=== PATIENT | male | born 1955 | race Caucasian/White ===

== ENCOUNTER → 2021-01-09 08:18 | Outpatient (BNVA) | payer OTHER, SELFPAY | PROVIDERS: PCP Physician Assistant Medical; Referring Provider Physician Assistant Medical; Visit Provider Anesthesiology Pain Medicine | DX: M54.16 Radiculopathy, lumbar region (principal); M47.816 Spondylosis without myelopathy or radiculopathy, lumbar region; M50.90 Cervical disc disorder, unspecified, unspecified cervical region; M54.9 Dorsalgia, unspecified; F17.210 Nicotine dependence, cigarettes, uncomplicated; Z79.891 Long term (current) use of opiate analgesic | CPT/HCPCS: 99205 ==

== ENCOUNTER → 2021-01-20 13:15 | Outpatient (BNVA) | payer OTHER, SELFPAY | PROVIDERS: PCP Physician Assistant Medical; Visit Provider Anesthesiology Pain Medicine | DX: M54.16 Radiculopathy, lumbar region (principal); M54.9 Dorsalgia, unspecified; Z79.891 Long term (current) use of opiate analgesic | CPT/HCPCS: 64483; 64484; J1100; J3490 ==

== ENCOUNTER → 2021-02-03 11:16 | Outpatient (BNVA) | payer OTHER, SELFPAY | PROVIDERS: PCP Physician Assistant Medical; Visit Provider Anesthesiology Pain Medicine | DX: M54.9 Dorsalgia, unspecified (principal); M50.90 Cervical disc disorder, unspecified, unspecified cervical region; M47.816 Spondylosis without myelopathy or radiculopathy, lumbar region; M54.16 Radiculopathy, lumbar region; Z79.891 Long term (current) use of opiate analgesic | CPT/HCPCS: 99213 ==

== ENCOUNTER 2022-02-28 07:27 | Day surgery (SDC) | payer MEDICARE, SELFPAY ==
[2022-02-26 09:56] VITALS: BMI 28.3
[2022-02-28 07:51] VITALS: BP 127/84; PULSE 76; RESP 18; TEMP 36.3; O2SAT 93
[2022-02-28] MEDS: sodium chloride 0.9% 1,000 ML 30 ML IV (08:01)
--- NOTE | 2022-02-28 08:46 | ANES.PREANE2 ---
Pre-Anesthetic Assessment Height/Weight: Height 1.85 m Weight 97.522 kg Temp Pulse Resp BP Pulse Ox 97.4 F L 76 18 127/84 93 02/28/22 07:51 02/28/22 07:51 02/28/22 07:51 02/28/22 07:51 02/28/22 07:51 Preop Diagnosis: diagnostic Operation Date: 02/28/22 09:15 Proposed Procedures p Colonoscopy 35892/z12.11(Not Applicable) - Faustino Delgado MD Familial anesthetic complications: None Was Beta Gabbi taken within 24 hours: N/A Last intake: Intake Last Liquid Date 02/27/22 Last Liquid Time 21:30 Last Solid Date 02/26/22 Last Solid Time 20:00 Social Tobacco and No alcohol Occasional drug use Exam alert, oriented x 3, clear to auscultation bilaterally and regular rate & rhythm Airway Submandibular: within normal limits Cervical ROM: within normal limits (Some pain noted with extension, normal ROM ) Mallampati: Class II Dentition: false Pulmonary Chronic Obstructive Pulmonary Disease CV/HEM None reported Denies CAD, HTN, arrythmia hx METS > 4 None reported Hepatic None reported GI None reported Metabolic None reported Musc/skel Lower Back Pain and Osteoarthritis/DJD Neuropsych None reported Anesthetic Plan ASA status: 3 (66 year old male, daily smoker with COPD per patient, and current occasional drug use ) Anesthesia: Anesthesia Evaluation and General Other: I discussed with the patient risks, goals, and benefits of MAC and general anesthesia. We discussed spectrum of MAC anesthesia including conversion to general as well as possibility of recall of intraoperative stimuli including discomfort/pain. Patient agrees to proceed with MAC. Risk of > 500 ml blood loss (7ml/kg in children): No Medications/Allergies Home Medications Medication Instructions Recorded Confirmed Last Taken Type hydrocodone 5 mg-acetaminophen 325 1 tab PO BID PRN 30 Days #60 tab 01/09/21 02/28/22 02/27/22 Rx mg tablet albuterol sulfate 90 mcg/actuation 2 puff INHALATION PRN 02/26/22 02/28/22 02/27/22 History aerosol inhaler Allergies Allergy/AdvReac Type Severity Reaction Status Date / Time No Known Allergies Allergy Verified 02/28/22 07:50 Current Medications Generic Name Dose Route Start Last Admin Trade Name Freq PRN Reason Stop Dose Admin Sodium Chloride 1,000 mls @ 30 mls/hr 02/28/22 08:00 02/28/22 08:01 Sodium Chloride 0.9% IV 03/01/22 07:59 30 mls/hr .Q24H KAITLIN Administration PFSH Anesthesia Family History Mother , Car accident No problems noted. Father , age 78 Heart attack Social History Smoking and tobacco status: current some day smoker Alcohol intake: never History of recent travel: No Data Anesthesia Cardiac Studies: No Data to Display
--- NOTE | 2022-02-28 09:00 | P.HP_ITS ---
Same Day Surgery H&P Indication for Procedure/HPI DATE OF PROCEDURE: February 28, 2022 CHIEF COMPLAINT/INDICATIONFOR SURGICAL PROCEDURE: Screening colonoscopy PREOP DIAGNOSIS: diagnostic PLANNED PROCEDURE: Operation Date: 02/28/22 09:15 Proposed Procedures p Colonoscopy 24944/z12.11(Not Applicable) - Faustino Delgado MD Medications/Allergies* Home Medications Medication Instructions Recorded Confirmed Type albuterol sulfate 90 mcg/actuation 2 puff INHALATION PRN 02/26/22 02/28/22 History aerosol inhaler Allergies/Adverse Reactions Allergy/AdvReac Type Severity Reaction Status Date / Time No Known Allergies Allergy Verified 02/28/22 07:50 Current Medications: Generic Name Dose Route Start Last Admin Trade Name Freq PRN Reason Stop Dose Admin Sodium Chloride 1,000 mls @ 30 mls/hr 02/28/22 08:00 02/28/22 08:01 Sodium Chloride 0.9% IV 03/01/22 07:59 30 mls/hr .Q24H KAITLIN Administration Pertinent History/Comorbid Conditions* Family History (Updated 01/09/21 @ 09:14 by Flower Last LPN) Father, age 78 Mother, Car accident Heart attack Father Social History Smoking and tobacco status: current some day smoker Alcohol intake: never History of recent travel: No Pertinent Exam Findings alert, oriented x 3 and regular rate & rhythm Recommendations Surgery/Procedure today Coding Level of Care Code Acute Helpdesk Administrator for Perfecto Shaw
[2022-02-28 10:00] VITALS: BP 110/73; PULSE 68; RESP 17; TEMP 36.5; O2SAT 94
--- NOTE | 2022-02-28 10:04 | ANE.PACU2 ---
Inpatient post-anesthesia follow up: Airway intact: Yes Vital signs: Temperature 97.4 F Pulse Rate 76 Respiratory Rate 18 Blood Pressure 127/84 Pulse Oximetry 93 Oxygen Delivery Me thod Room Air Oxygen Flow Rate Fraction of Inspir ed Oxygen Hydration adequate: Yes Nausea and vomiting: No Pain level: 1 Mental status: Baseline
[2022-02-28 10:07] VITALS: BP 110/73; PULSE 68; RESP 17; TEMP 36.5; O2SAT 94
[2022-02-28 10:10] VITALS: BP 108/64; PULSE 58; RESP 17; TEMP 36.6; O2SAT 98
== END 2022-02-28 10:40 | disposition home or self-care (01) ==
PROVIDERS: Visit Provider Surgery
PROC: 0DJD8ZZ Inspection of Lower Intestinal Tract, Via Natural or Artificial Opening Endoscopic (ICD-10-PCS; CPT 45378; principal; 2022-02-28 09:15)
DX: Z12.11 Encounter for screening for malignant neoplasm of colon (principal); D12.3 Benign neoplasm of transverse colon; K57.30 Diverticulosis of large intestine without perforation or abscess without bleeding; K64.8 Other hemorrhoids; D12.8 Benign neoplasm of rectum; F17.200 Nicotine dependence, unspecified, uncomplicated; J44.9 Chronic obstructive pulmonary disease, unspecified
CPT/HCPCS: 45385; 88305; J2704; J7030

== ENCOUNTER 2022-03-18 10:52 | Emergency (ER) | payer MEDICARE, SELFPAY ==
[2022-03-18 11:00] VITALS: BP 161/80; PULSE 90; RESP 18; TEMP 37.6; O2SAT 95; BMI 28.3
--- NOTE | 2022-03-18 11:34 | ED_ITS ---
HPI - Male Genitourinary General: Chief complaint: Urogenital-Male Stated complaint: abdominal & back pain/pain while urinating Time Seen by Provider: 03/18/22 11:26 Source: patient and family Mode of arrival: ambulatory Limitations: no limitations History of Present Illness: This patient presents to our emergency department because of urinary complaints. He states over the past approximately 5 days or so he has had urinary urgency, burning, right flank pain. He states that the back pain has been present most days. It is unchanged and is nonradiating. Its not ripping or tearing. He states that when he does urinate it seems to exacerbate his back pain. He denies back injury but does have a history of herniated disks. He does have some chronic sciatic nerve distribution pain its not changed. He has had no saddle anesthesia or Perianal numbness or loss or bladder or bowel control. He is unaware of any blood in his urine. No pain radiating to his testicle groin lower groin etc. No muscle weakness. He does not think he has had a history of kidney stones. He has not had any recent trauma to his back with lifting or falls etc. He denies fevers but has had chills. He has been drinking fluids throughout the week but over the past 24 hours his appetite is decreased. He has had no abdominal surgeries. Does have a past history of smoking and continues to smoke. He denies any history of coronary disease or lung disease that he is aware. No exposure to infectious disease etc. Duration: progressively worsening Location: right flank Radiation: abdomen Severity: moderate Quality: aching and burning Exacerbating factors: urination Associated symptoms: Reports fevers/chills and nausea; Deny dysuria, hematuria, urinary incontinence, urinary retention or vomiting Related Data: Sexually active: Yes Review of Systems Const: Reports: chills, body aches and change in appetite; Denies: fever(s) Eyes: Denies: change in vision or blurry vision ENMT: Denies: throat pain, odynophagia, dental pain or nasal congestion Card: Denies: chest pain, palpitations or irregular heart rhythm Resp: Denies: dyspnea, productive cough or non-productive cough GI: Reports: nausea; Denies: vomiting or hematochezia : Reports: flank pain and urinary urgency; Denies: difficulty urinating, dysuria, urinary dribbling, difficulty starting urination, change in urine stream, urinary incontinence or hematuria Musc: Reports: back pain; Denies: neck pain, extremity pain or extremity swelling Skin/Breast: Denies: rash Neuro: Denies: headache(s), numbness in extremities, weakness in extremities or difficulty walking Jero/Lymph: Denies: easy bruising or easy bleeding PFSH ED PFSH: Surgical History (Updated 02/28/22 @ 09:59 by Faustino Delgado MD) Status post colonoscopy (02/28/22) Family History Mother , Car accident No problems noted. Father , age 78 Heart attack Social History Smoking and tobacco status: current some day smoker Alcohol intake: never History of recent travel: No Physical Exam Narrative: EXAM NARRATIVE: He is alert and interactive. He appears to be slightly uncomfortable but is goal-directed in his speech. Const: COMMON NORMALS: average body habitus, patient oriented x3, healthy appearing and well nourished HENMT: COMMON NORMALS: normocephalic, Normal nasal mucous membranes and turbinates present and moist oral mucous membranes HEAD & SCALP: normocephalic NOSE: Normal nasal mucous membranes and turbinates present Eye: COMMON NORMALS: Equal, round and reactive pupils present and EOMs intact bilaterally PUPIL: Yes Equal, round and reactive pupils present Neck/C-Spine: COMMON NORMALS: full ROM, supple and no JVD GENERAL: Yes normal visual inspection and Yes trachea midline Chest: COMMONS NORMALS: normal inspection of the chest Resp: COMMON NORMALS: normal respiratory effort, No use of accessory muscles and clear to auscultation bilaterally AUSCULTATION: clear to auscultation b ilaterally Cardio: COMMON NORMALS: no JVD, regular rate, regular rhythm and Peripheral pulses 2+ throughout RATE: regular rate RHYTHM: regular rhythm PERIPHERAL PULSES: Peripheral pulses 2+ throughout GI: COMMON NORMALS: Normal to inspection, nondistended, normoactive bowel sounds present, Soft to palpation, non-tender, No hepatosplenomegaly present, no masses and no bruits PALPATION: Yes Soft to palpation and Yes No hepatosplenomegaly present : BLADDER/KIDNEY EXAM: Yes CVA tenderness (No skin changes, ecchymosis. Exacerbated with twisting to the right) Back/Pelvis: COMMON NORMALS: thoracic and lumbar spine normal to inspection, thoraco-lumbar ROM normal and straight leg raise negative bilaterally GENERAL BACK: Yes CVA tenderness (No skin changes, ecchymosis. Exacerbated with twisting to the right) CVA tenderness: right SACROILIAC JOINTS: Yes SI joints normal Extremity: COMMON NORMALS: normal to inspection, full ROM, capillary refill normal, no calf tenderness and no pedal edema Neuro: COMMON NORMALS: patient oriented x3, moves all extremities, no focal motor deficits and no sensory deficits noted CRANIAL NERVES: Yes CN normal except as noted SPEECH: speech normal SENSORY EXAM: No Perineum abnormal Psych: COMMON NORMALS: cooperative and normal affect Skin: COMMON NORMALS: no rashes or lesions noted, turgor normal and no jaundice GENERAL SKIN EXAM: no rashes or lesions noted and turgor normal Course Reevaluation(s): Reevaluation #1: Patient's still uncomfortable. He is also having urinary urgency and retching. I discussed the possibility of observation time in the hospital versus going home. He is very reluctant to be admitted to the hospital will allow them to contemplate that and will continue IV fluids and antiemetics. Time: 13:38 Reevaluation #2: Patient likely has underlying COPD of significant nature given his borderline oxygen on pulse oximetry today. Patient is a chronic smoker and has a chronic cough as well. He really prefers to be discharged to home. We will go ahead and give him a DuoNeb treatment and then revisit that. Time: 14:43 Reevaluation #3: Patient patient states he feels markedly better. He is breathing easy. Oxygen level is 93% at this time. Lung examination reveals no wheezes or crackles. Remainder of his examination is unremarkable and unchanged. We again reviewed admitting for observation even his kidney infection no other associated findings however he acknowledged that this would likely be the best plan for him but he prefers to be discharged home and he will return immediately should symptoms not continue to improve. Again I reiterated to both he and his spouse who is present that he needs further evaluation for his likely COPD. We will go ahead and provide him an inhaler as he responded well to beta agonist. We will continue on antibiotics for the next week as well as analgesics. We emphasized the need for fluid intake and again reemphasized the need to return to this emergency department immediately should he have failure to improve or worsening symptoms at any time. Time: 15:29 Vital Signs: Vital signs: Vital Signs Temperature 99.6 F 03/18/22 13:09 Pulse Rate 96 03/18/22 15:03 Respiratory Rate 18 03/18/22 15:03 Blood Pressure 143/88 03/18/22 13:09 Pulse Oximetry 94 03/18/22 15:03 MDM - Male Medical Decision Making Patient with 1 week history of flank pain and urgency comes to the emergency department and was evaluated to include imaging and other ancillary studies. No evidence of worrisome intra-abdominal process but does have findings consistent with pyelonephritis. He was given fluids and antibiotics while in the emergency department. He also likely has undiagnosed COPD. He is a long-term smoker and was noted to have borderline oxygen level in the emergency department but did improve markedly after beta agonist treatment. He strongly wishes to be discharged and understands the risks and benefits of doing so. We will make sure that he has adequate medications and we also discussed return precautions. Lab Data I reviewed the patient's lab results. : 03/18/22 12:15 03/18/22 12:15 Radiology Impressions Abdomen/Pelvis CT 03/18/22 11:35 IMPRESSION: There are small stones and/or gravel at the dependent aspect of the gallbladder. Laboratory Results WBC 18.8 10^3/uL (4.0-10.0) H 03/18/22 12:15 RBC 4.64 10^6/uL (4.1-5.3) 03/18/22 12:15 Hgb 15.0 g/dL (11.7-16.6) 03/18/22 12:15 Hct 45.7 % (42.0-52.0) 03/18/22 12:15 MCV 98.5 fl (80-94) H 03/18/22 12:15 MCH 32.3 pg (28.0-34.0) 03/18/22 12:15 MCHC 32.8 g/dL (30.0-36.0) 03/18/22 12:15 RDW 12.7 % (12.1-15.1) 03/18/22 12:15 Plt Count 216 10^3/cmm (130-400) 03/18/22 12:15 MPV 8.9 fL (7.4-10.4) 03/18/22 12:15 Neut % (Auto) 90.8 % 03/18/22 12:15 Lymph % (Auto) 4.1 % 03/18/22 12:15 Jackson % (Auto) 4.0 % 03/18/22 12:15 Eos % (Auto) 0.1 % 03/18/22 12:15 Baso % (Auto) 0.5 % 03/18/22 12:15 Neut # (Auto) 17.07 10^3/uL (1.8-7.7) H 03/18/22 12:15 Lymph # (Auto) 0.8 10^3/uL (0.8-4.8) 03/18/22 12:15 Jackson # (Auto) 0.8 10^3/uL (0.2-0.9) 03/18/22 12:15 Eos # (Auto) 0.0 10^3/uL (0.0-0.8) 03/18/22 12:15 Baso # (Auto) 0.1 10^3/uL (0.0-0.1) 03/18/22 12:15 Nucleated RBC % (auto) 0 % 03/18/22 12:15 Nucleated RBCs # 0.0 /100WBC 03/18/22 12:15 Sodium 132 mmol/L (136-145) L 03/18/22 12:15 Potassium 4.4 mmol/L (3.5-5.1) 03/18/22 12:15 Chloride 96 mmol/L (98-107) L 03/18/22 12:15 Carbon Dioxide 28 mmol/L (22-29) 03/18/22 12:15 Anion Gap 12.4 (5-19) 03/18/22 12:15 BUN 8 mg/dL (8-23) 03/18/22 12:15 Creatinine 0.8 mg/dL (0.7-1.2) 03/18/22 12:15 GFR Calculation 97.0 mL/min (90-130) 03/18/22 12:15 Glucose 106 mg/dL (65-115) 03/18/22 12:15 Calculated Osmolality 273 mOsm/kg (285-295) L 03/18/22 12:15 Calcium 9.0 mg/dL (8.5-10.5) 03/18/22 12:15 Urine Color Yellow (Yellow) 03/18/22 11:53 Urine Appearance Cloudy (CLEAR) 03/18/22 11:53 Urine pH 7 (5-7) 03/18/22 11:53 Ur Specific [place] 1.005 (1.005-1.030) 03/18/22 11:53 Urine Protein Trace (Negative) 03/18/22 11:53 Urine Glucose (UA) Norm (Normal) 03/18/22 11:53 Urine Ketones Negative (Negative) 03/18/22 11:53 Urine Blood Trace (Negative) H 03/18/22 11:53 Urine Nitrate Positive (Negative) H 03/18/22 11:53 Urine Bilirubin Neg (Negative) 03/18/22 11:53 Urine Urobilinogen 1 mg/dL (Negative) H 03/18/22 11:53 Ur Leukocyte Esterase 1+ (Negative) H 03/18/22 11:53 Urine RBC 0-4 /hpf (0-2) H 03/18/22 11:53 Urine WBC 15-25 /hpf (0-5) H 03/18/22 11:53 Ur Squamous Epith Cells None /hpf (0-5) 03/18/22 11:53 Amorphous Sediment Not Reportable 03/18/22 11:53 Urine Bacteria 4+ /hpf (NONE) H 03/18/22 11:53 Discharge Plan Discharge Patient Disposition: Home Clinical Impression: Urinary tract infection, COPD (chronic obstructive pulmonary disease) Condition: Stable Prescriptions: New cephalexin 500 mg capsule 500 mg PO QID 7 Days Qty: 28 0RF albuterol sulfate [ProAir HFA] 90 mcg/actuation HFA aerosol inhaler 2 inh inhalation QID PRN (Reason: shortness of breath or wheezing) Qty: 8.5 0RF hyoscyamine sulfate [Levsin] 0.125 mg tablet 0.125 mg PO Q6H PRN (Reason: dyspepsia) Qty: 30 0RF No Action hydrocodone-acetaminophen 5-325 mg tablet 1 tab PO BID PRN (Reason: pain) 30 Days Qty: 60 0RF Rx Instructions: patient may fill 30 days after previous refill. albuterol sulfate 90 mcg/actuation HFA aerosol inhaler 2 puff INHALATION PRN 0RF Discharge Orders: Discharge ED (Routine); Ordered 03/18/22 Ordered By: Reinaldo Sequeira Referrals: Danny Negron [Primary Care Provider] - Discharge Diet: Usual diet Discharge Activity: Increase activity as tolerated Patient Instructions: Opioid Safety Activity Restrictions/Additional Instructions: Do not smoke cigarettes. Take the medications we have provided for you to help treat your infection. If your symptoms do not continue to improve over the next 2 to 3 days or worsen at any time return to this or the nearest emergency department immediately. Drink at least 1 quart of fluids daily in addition to your other fluids. Follow-up with your doctor in the next 2 weeks for reevaluation and also for further consideration of treatment of your COPD. Coding Level of Care Code ED Commissary Officer for Perfecto Fwjolene Exam Comprehensive
--- NOTE | 2022-03-18 11:35 | CTR_ITS ---
PROCEDURE INFORMATION: Exam: CT Abdomen And Pelvis Without Contrast Exam date and time: 03/18/2022 11:46 AM Age: 66 years old Clinical indication: Abdominal pain; Localized; Lower; Prior surgery; Surgery date: 6+ months; Surgery type: Testicular (trauma) 10 years ago; Additional info: Right flank pain-smoker history TECHNIQUE: Imaging protocol: Computed tomography of the abdomen and pelvis without contrast. Radiation optimization: All CT scans at this facility use at least one of these dose optimization techniques: automated exposure control; mA and/or kV adjustment per patient size (includes targeted exams where dose is matched to clinical indication); or iterative reconstruction. COMPARISON: No relevant prior studies available. RADIATION DOSE METRICS: Total DLP (mGy-cm): 1899.67 FINDINGS: Liver: Normal. No mass. Gallbladder and bile ducts: There are small stones and/or gravel at the dependent aspect of the gallbladder. Pancreas: Normal. No ductal dilation. Spleen: Normal. No splenomegaly. Adrenal glands: Normal. No mass. Kidneys and ureters: Normal. No hydronephrosis. Stomach and bowel: There is diverticulosis of the colon without evidence of diverticulitis. Appendix: A normal appendix is identified. Intraperitoneal space: Unremarkable. No free air. No significant fluid collection. Vasculature: Infrarenal abdominal aorta is ectatic measuring 2.4 cm in the transverse dimension. There is scattered atherosclerotic plaque in the aorta and iliac arteries. Lymph nodes: Unremarkable. No enlarged lymph nodes. Urinary bladder: Unremarkable as visualized. Reproductive: Unremarkable as visualized. Bones/joints: Unremarkable. No acute fracture. Soft tissues: Unremarkable. CT/CT abdomen pelvis [facility] [id number] IMPRESSION: There are small stones and/or gravel at the dependent aspect of the gallbladder.
[2022-03-18 12:12] LABS: Urine Appearance Cloudy (CLEAR); Urine Color Yellow (Yellow); pH Urine 7 (5-7)
[2022-03-18 12:13] LABS: Add Urine Microscopic? YES; Bilirubin Urine Neg (Negative); Blood Urine Trace (Negative); Glucose Urine UA Norm (Normal); Ketones Urine Negative (Negative); Leukocyte Esterase Urine 1+ (Negative); Nitrate Urine Positive (Negative); Protein Urine Trace (Negative); Specific Gravity, Urine 1.005 (1.005-1.030); Urobilinogen Urine 1 mg/dL (Negative)
[2022-03-18 12:15] LABS: RBC Urine 0-4 /hpf (0-2)
[2022-03-18 12:16] LABS: Bacteria Urine 4+ /hpf; WBC Urine 15-25 /hpf (0-5)
[2022-03-18 12:17] LABS: Add Urine Culture? Yes
[2022-03-18 12:21] VITALS: BP 166/84; PULSE 88; RESP 18; O2SAT 91
[2022-03-18 12:21] LABS: Basophils # 0.1 10^3/uL (0.0-0.1); Basophils % 0.5 %; Eosinophils % 0.1 %; Hematocrit 45.7 % (42.0-52.0); Lymphocytes # 0.8 10^3/uL (0.8-4.8); Lymphocytes % 4.1 %; Mean Corpuscular HGB Conc 32.8 g/dL (30.0-36.0); Mean Corpuscular Hemoglobin 32.3 pg (28.0-34.0); Mean Corpuscular Volume 98.5 fl (80-94); Mean Platelet Volume 8.9 fL (7.4-10.4); Monocytes # 0.8 10^3/uL (0.2-0.9); Neutrophils # 17.07 10^3/uL (1.8-7.7); Neutrophils % 90.8 %; Nucleated Red Blood Cells % 0 %; Platelet Count 216 10^3/cmm (130-400); Red Blood Count 4.64 10^6/uL (4.1-5.3); Red Cell Distribution Width 12.7 % (12.1-15.1); White Blood Count 18.8 10^3/uL (4.0-10.0)
[2022-03-18] MEDS: sodium chloride 0.9% 1,000 ML 999 ML IV ×2 (12:22→13:58)
[2022-03-18] MEDS: cefTRIAXone 2,000 MG in sodium chloride 0.9% (plus) 50 ML 100 MG IV (12:36)
[2022-03-18 12:47] LABS: Anion Gap 12.4 (5-19); Blood Urea Nitrogen 8 mg/dL (8-23); Carbon Dioxide 28 mmol/L (22-29); Chloride 96 mmol/L (98-107); Glucose 106 mg/dL (65-115); Osmolality Calculated 273 mOsm/kg (285-295); Potassium 4.4 mmol/L (3.5-5.1); Sodium 132 mmol/L (136-145)
[2022-03-18] MEDS: ketorolac 30 mg/mL INJ 15 MG IVP (13:00)
[2022-03-18] MEDS: hyoscyamine ODT 0.125 mg Tablet 0.25 MG PO (13:00)
[2022-03-18 13:09] VITALS: BP 143/88; PULSE 98; RESP 18; TEMP 37.6; O2SAT 91
[2022-03-18] MEDS: ondansetron 2 mg/ML SDV 2 mL 4 MG IVP (13:58)
[2022-03-18] MEDS: ipratropium-albuterol 3 mL Neb INHALATION (14:55)
[2022-03-18 14:56] VITALS: PULSE 96; RESP 18; O2SAT 92
[2022-03-18 15:03] VITALS: PULSE 96; RESP 18; O2SAT 94
[2022-03-18 16:13] VITALS: BP 127/73; PULSE 88; RESP 18; O2SAT 90
== END 2022-03-18 16:14 | disposition home or self-care (01) ==
PROVIDERS: Physician Assistant; Emergency Provider Emergency Medicine; PCP Family Medicine
DX: N39.0 Urinary tract infection, site not specified (principal); J44.9 Chronic obstructive pulmonary disease, unspecified; F17.200 Nicotine dependence, unspecified, uncomplicated
CPT/HCPCS: 74176; 80048; 81001; 85025; 87077; 87086; 87186; 94640; 96361; 96365; 96375; 99284; J0696; J1885; J2405; J7030

== ENCOUNTER → 2022-03-20 11:37 | Outpatient (BNVA) | payer MEDICARE, SELFPAY | PROVIDERS: PCP Family Medicine; Visit Provider Surgery | DX: Z09 Encounter for follow-up examination after completed treatment for conditions other than malignant neoplasm (principal) | CPT/HCPCS: 99212 ==

== ENCOUNTER → 2022-08-02 09:25 | Outpatient (BNVA) | payer MEDICARE, SELFPAY | PROVIDERS: PCP Family Medicine; Visit Provider Orthopaedic Surgery | DX: M43.16 Spondylolisthesis, lumbar region (principal); M54.16 Radiculopathy, lumbar region | CPT/HCPCS: 72110; 99204 ==

== ENCOUNTER 2022-08-27 11:46 | Outpatient (CLI) | payer MEDICARE, SELFPAY | END 2022-08-27 11:47 | disposition home or self-care (01) | LOC: RT 10-15 11:48 | PROVIDERS: PCP Family Medicine; Visit Provider Orthopaedic Surgery | DX: Z13.6 Encounter for screening for cardiovascular disorders (principal) | CPT/HCPCS: 93005 ==

== ENCOUNTER 2022-09-03 13:19 | Inpatient (IN) | payer MEDICARE, SELFPAY ==
[2022-08-27 09:14] VITALS: BMI 28.3
--- NOTE | 2022-08-27 09:23 | ECG_ITS ---
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 Measurements Intervals [place] Rate: 69 P: 71 [place]: 138 QRS: 42 QRSD: 94 T: 67 QT: 397 QTc: 426 Interpretive Statements SINUS RHYTHM WITH SINUS ARRHYTHMIA No previous ECG available for comparison Electronically Signed On 08-27-2022 18:28:36 MEDICAL STAFF CREDENTIALING COORDINATOR by Karlos Larose M.D. [id number]
--- NOTE | 2022-08-27 16:12 | ANES.PREANE2 ---
Pre-Anesthetic Assessment Height/Weight: Height 1.85 m Weight 97.522 kg Preop Diagnosis: diagnostic Operation Date: 09/03/22 13:40 Proposed Procedures p PLIF L4/5 44841/[id number]/[id number]/[id number]/61484/M43.16(Not Applicable) - Foster Rao DO Familial anesthetic complications: none Was Beta Gabbi taken within 24 hours: N/A Was Clonidine taken within 24 hours: N/A Social Tobacco and No alcohol Exam alert, oriented x 3 and regular rate & rhythm rhonchi Airway Submandibular: within normal limits Cervical ROM: within normal limits Mallampati: Class II Dentition: false Pulmonary Chronic Obstructive Pulmonary Disease [facility] [place]/skel Lower Back Pain Chronic opioid Anesthetic Plan ASA status: 3 Anesthesia: General Medications/Allergies Home Medications Medication Instructions Recorded Confirmed Last Taken Type hydrocodone 5 mg-acetaminophen 325 1 tab PO BID PRN pain 30 days #60 01/09/21 08/27/22 08/27/22 Rx mg tablet tabs albuterol sulfate 90 mcg/actuation 2 puff inhalation PRN 02/26/22 08/27/22 08/27/22 History aerosol inhaler albuterol sulfate 90 mcg/actuation 2 inh inhalation QID PRN shortness 03/18/22 08/27/22 08/27/22 Rx aerosol inhaler (ProAir HFA) of breath or wheezing #8.5 grams hyoscyamine sulfate 0.125 mg 0.125 mg PO Q6H PRN dyspepsia #30 03/18/22 08/27/22 08/27/22 Rx tablet (Levsin) tabs Intraoperative Neuromonitoring #1 ea 08/27/22 Unknown Rx Allergies Allergy/AdvReac Type Severity Reaction Status Date / Time No Known Allergies Allergy Verified 03/20/22 09:42 [facility] Anesthesia Surgical History Status post colonoscopy (02/28/22) Family History Mother , Car accident No problems noted. Father , age 78 Heart attack Social History Smoking and tobacco status: current some day smoker Alcohol intake: never History of recent travel: No Data Anesthesia Cardiac Studies: No Data to Display
[2022-09-03] VITALS (28 sets, daily range): BP systolic 105–163; BP diastolic 60–86; PULSE 53–82; RESP 6–20; TEMP 36.1–36.7; O2SAT 90–99
--- NOTE | 2022-09-03 | XR_ITS ---
WS: [id number] XR lumbar spine 2-3V* [id number] REASON FOR EXAM: L4/5 Interbody fusion with posterolateral fusion, Laminect FINDINGS: Posterior decompression with pedicle screw placement at L4 and L5. Interbody fusion device at L4-L5. Surgical appliances are in proper position and alignment. XR/XR lumbar spine 2-3V* [id number] IMPRESSION: Pedicle screw and interbody fusion device placement at L4-L5 as above.
[2022-09-03] MEDS: sodium chloride 0.9% 1,000 ML 30 ML IV (08:00)
--- NOTE | 2022-09-03 08:32 | P.ANESUD_ITS ---
Pre-Anesthetic Update Pre-Anesthetic Assessment: Date of Surgery/Procedure: 09/03/22 Preop Kaylyn gnosis: L4-5 spondylolisthesis, lumbar stenosis Proposed Procedure: Operation Date: 09/03/22 10:00 Proposed Procedures p PLIF L4/5 [id number]/24072/M43.16(Not Applicable) - Foster Rao, DO Any changes to Pre-Anesthetic Assessment?: No Last Intake: Intake Last Liquid Date 09/02/22 Last Liquid Time 22:00 Last Solid Date 09/02/22 Last Solid Time 21:00 Vitals: Temperature 98.1 F 09/03/22 07:37 Temperature Source Temporal Artery S can 09/03/22 07:37 Pulse Rate 79 09/03/22 07:37 Respiratory Rate 18 09/03/22 07:37 Blood Pressure 163/75 09/03/22 07:37 Blood Pressure Makayla n 104 09/03/22 07:37 Pulse Oximetry 92 09/03/22 07:37 Oxygen Delivery Me thod 09/03/22 07:37 Exam: Pre-Anes Outpt Exam: alert, oriented x 3, clear to auscultation bilaterally and regular rate & rhythm Cardiac Studies: No Data to Display
--- NOTE | 2022-09-03 09:19 | P.HP_ITS ---
Providers/Chief Complaint Primary Care Provider: Danny Negron Chief Complaint: PLIF L4/5 History of Present Illness Saloni Pascual is a 66 year old male He states that he has had pain to his low back for 2 years now. He states that 2 years ago he picked up a couch and states that he has had pain ever since. He states that his pain is constant and states that his pain radiates down his left and right leg. He states that his pain is r eproduced by walking, standing and sitting. He states that his pain will keep him up at night, he states that he migh get 4 hours asleep at night. He states that his pain is getting increasingly worse. He states that he takes hydrocodone with mild relief. He states that he uses heat with very mild relief. He states that he has had 4? injections and states that they helped for about 3 days. Review of Systems Const: Denies: fever(s) or chills Card: Denies: chest pain or dyspnea on exertion Resp: Denies: dyspnea or productive cough GI: Denies: abdominal pain, nausea or vomiting Musc: Denies: joint pain, joint swelling or limited range of motion Skin/Breast: Denies: changes in skin color or dry skin Neuro: Denies: numbness in extremities or weakness in extremities Psych: Denies: anxiety Jreo/Lymph: Denies: easy bruising or easy bleeding Medications/Allergies Home Medications Medication Instructions Recorded Confirmed Last Taken Type hydrocodone 5 mg-acetaminophen 325 1 tab PO BID PRN pain 30 days #60 01/09/21 09/03/22 09/03/22 Rx mg tablet tabs albuterol sulfate 90 mcg/actuation 2 inh inhalation QID PRN shortness 03/18/22 09/03/22 09/03/22 Rx aerosol inhaler (ProAir HFA) of breath or wheezing #8.5 grams Intraoperative Neuromonitoring #1 ea 08/27/22 Unknown Rx Wixela Inhub 1 puff inhalation QPM 09/03/22 09/03/22 09/02/22 History budesonide-formoterol HFA 160 2 inh inhalation BID 09/03/22 09/03/22 09/03/22 History mcg-4.5 mcg/actuation aerosol inhaler (Symbicort) Allergies Allergy/AdvReac Type Severity Reaction Status Date / Time No Known Allergies Allergy Verified 09/03/22 07:31 PFSH Acute PFSH: Surgical History Status post colonoscopy (02/28/22) Family History Mother , Car accident No problems noted. Father , age 78 Heart attack Social History Smoking and tobacco status: current some day smoker Alcohol intake: never History of recent travel: No Vitals/I&O/Wt Last Vital Signs Temp 98.1 F 09/03/22 07:37 Pulse 79 09/03/22 07:37 Resp 18 09/03/22 07:37 BP 163/75 09/03/22 07:37 Pulse Ox 92 09/03/22 07:37 O2 Del Method 09/03/22 07:37 Physical Exam Narrative: CONSTITUTIONAL: The patient is a normal appearing [] in no apparent distress. GENERAL: Patient in no acute distress. CARDIAC: Regular rate and rhythm. CHEST: Normal inspiratory effort, normal respiratory rate. ABDOMEN: Soft and nontender. SKIN: Clear, warm and intact. NEURO?PSYCH: The patient is alert and oriented to person, place and time. Sensorv /SILT Motor StrengthShoulder abduction C5 5/5Wrist extension C6 5/5Elbow extension C7 5/5Hand Head Teacher C8 5/5Finger abduction T15/5 Radial/ Ulnar/ Median n intact LowerSensory (SILT)Motor StrengthHin flexion L2/3Ant/inner thigh 5/5Hip adduction L2/3 5/5Knee extension L4 Lat thigh, 5/5Toe dorsiflexion L5 5/5Ankle dorsiflexion L5/ A51Kxujliw flexion S1 5/5 DTRBleeps 2+Triceps 2+Brachioradialis 2+Patellar 2+Achilles 2+ MUSCULOSKELETAL: [] UPPEREXTREMITIES: The patient had full active ROM in fingers, wrist, elbow, and shoulder. The patient demonstrated ability to fully flex/extend/abdu ct/adduct fingers, make ok sign, cross 2nd/3rd digits, extend 1st digit fully.. Radial pulse 2+, CR<2 seconds. LOWER EXTREMITIES: Pt has full, active ROM of toes, ankle, knee, and hip. Dorsalis pedis/posterior tibialis pulses 2+, CR<2 seconds. SPINE: Skin warm, dry, intact. A&P Assessment and plan (1) Spondylolisthesis at L4-L5 level: L4/5 PLIF Attestations Medical Necessity Statement*: failed conservative tx Coding Level of Care Code Acute Agricultural Extension Specialist for [facility] Fwd Diagnoses Spondylolisthesis at L4-L5 level M43.16
[2022-09-03] MEDS: ceFAZolin 2,000 MG in sodium chloride 0.9% (plus) 50 ML 100 MG IV ×2 (10:10→17:00)
--- NOTE | 2022-09-03 10:41 | SUR.OPER ---
ATTEMPTED TO NOTIFY OF SURGICAL START. NO ANSWER.
[2022-09-03] MEDS: heparin, porcine 1,000 unit/mL INJ 10 mL 10000 UNIT IRRIGATION (10:44)
[2022-09-03] MEDS: vancomycin 1,000 MG SDV 1000 MG XX (10:44)
--- NOTE | 2022-09-03 12:43 | PM.OP ---
Operative Report Date of procedure: September 03, 2022 Pre-op diagnosis: Preop Diagnosis L4-5 spondylolisthesis, lumbar stenosis Post-op diagnosis: same Procedure done: 1. L4/5 Interbody fusion with posterolateral fusion 2. Instrumentation L4/5 3. Cage at L4/5 4. Laminectomy L4 5. use of autograft from same incision 6. allograft 7. Bone marrow aspirate from right iliac crest 8. Use oc computer navigation stereotactic for spine Surgeon: Foster Rao Link Fabric Machine Operator: Mirza Baker Link Fabric Machine Operator: The cardiovascular surgical tech, Mirza Baker, PAC was needed for his expertise under the microscope. He was important and necessary throughout the procedure to complete in a safe and timely manner. He assisted with patient positioning prepping and draping tissue retraction suctioning of the operative field protection of the dural sac and tissue closure Estimated blood loss (mL): 250 Procedure: 1. L4/5 Interbody fusion with posterolateral fusion 2. Instrumentation L4/5 3. Cage at L4/5 4. Laminectomy L4 5. use of autograft from same incision 6. allograft 7. Bone marrow aspirate from right iliac crest 8. Use oc computer navigation stereotactic for spine Patient is brought to the operative suite. After undergoing anesthesia, the patient had neuro monitoring attached. Patient was then placed in the prone position on the Maksim table. All areas of impingement were well-padded. Patient was then prepped and draped in the normal sterile fashion. Skin incision was then made over the L4/5 space. Subperiosteal dissection was made out to the transverse processes of L4 and L5. Next tension was placed to the Chosen.fm bone marrow aspirate kit was used to aspirate bone marrow aspirate of the right iliac crest. This was done by using the sharp probe to open up the bone. Aspiration was performed and then the blunt probe was then used to dissect down to through the bone tunnel. An aspirating well drawn back a millimeter approximately 20 cc of bone marrow aspirate was used. Admixed with the allograft and autograft bone that will be used. Was brought to placing the fiducial for the placement of pedicle screws. 2 stents was made in the over the right iliac crest. 2 pins were placed these pins were removed at the end the case. The fusion was then attached to these 2 pins. The C-arm was brought in and spun around the patient. And then the information from the C-arm was loaded the computer in order for use for the pedicle screws later in the case. The technique for placing the pedicle screws was to use a drill followed by the gearshift probe linked to computer navigation. Followed by the ball probe to feel the superior inferior medial lateral bales of the pedicles linked to computer navigation. Then placement of the screws. Was done at each pedicle. Screws were placed at L4 bilaterally and L5. Next attention was brought to performing the laminectomy ofL4. This was done using the high-speed bur Kerrisons and curettes. Once the lamina was removed and then attention was brought to performing a partial facetectomy on the contralateral side. This was done again using the high-speed bur curettes and Kerrisons. The ligamentum flavum was taken down bilaterally from L4 to L5. Attention was then brought to the facet on the ipsilateral side. The facet was taken down. The L5 nerve was decompressed as it passed around the L5 pedicle. The laminectomy was done for purposes of decompressing the nerve as well as placement of the cage. The L4 nerve was identified as it traversed through the L4/5 foramen. The thecal sac was identified and retracted. The L4/5 disc base was identified. Using a knife the disc base was opened. And then sequential oscar were placed. The first shaver was a 6 and the last shaver was a 10. Using a pituitary and down going curette the endplates were scraped and disc material was removed from the space. Once adequate decompression of the disc base was felt to be had. Osteoamp sponge was packed into the anterior aspect of the disc base. Then a size 10 cage from Rodrigo was placed after packing osteoamp into the cage. While placing the cage the thecal sac and L5 nerve was protected. C arm was used to ensure that the cages placed in the appropriate position. Attention was then brought to attaching the rods to the screws placed in the L4 and L5 bilaterally. Caps were torqued into position. Locking the construct in place. Wound was copiously irrigated and then attention was brought to decorticating the facets and transverse processes laterally. Bone that was taken down from the lamina was used along with osteoamp fibers and sponges were packed into the lateral gutters along the facet joints. This was done bilaterally. Wound was then closed in a layered fashion starting with the thoracolumbar fascia. 0-vicryl was used the sub cutaneous tissue was closed with 2-0 vicryl and skin with 4-0 monocryl. Glue was then used to seal the skin and a steril dressing was applied. Patient was then placed in the supine position. The endotracheal tube was removed and patient was transferred to the PACU in stable condition.
--- NOTE | 2022-09-03 13:21 | SUR.PHASEI ---
1302 PT TO PACU 4 PT SLEEPS WITH ORAL AIRWAY IN PLACE, IV #20 RT INNER FA WITH 400 ML UP AT KVO RATE, MONITOR SR WITH NO ECTOPY NOTED. DRESSING TO BACK D/I SAMANO TO DEPENDAND DRAINAGE WITH YELLOW URINE TO TUBING AND BAG, STATLOCK TO RT INNER THIGH, PT ID BRACELET TO LT WRIST AND PT ID'D WITH 2 IDENTIFIERS BILATERAL SCDS ON. PT HAS HEMOVAC DRAIN COMPRESSED WITH SANGUINEOUS DRAINAGE TO TUBING AND DRAIN. 1315 PT ORAL AIRWAY OUT PT ORALLY SUCTIONED WITH YANKER, NO GAG REFLEX NOTED HOB AT 20 DEGREES PT COUGHS BUT DOES NOT AWAKEN 1327 PT DOES NOT RESPOND TO TOUCH, PT MOVES AND COUGHS BUT NOT TO COMMAND.PT DOES NOT OPEN EYES.
--- NOTE | 2022-09-03 13:32 | SUR.PHASEI ---
LATE ENTRY, 1302 PT GIVEN WARM BLANKETS X 2 FOR TEMP OF 97
--- NOTE | 2022-09-03 13:32 | SUR.PHASEI ---
PT MORE AWAKE, OPENS EYES AND MOVES BILAT FEET STRONGLY AND EQUALLY TO COMMAND, VSS IV PATENT AT KVO RATE.
[2022-09-03] MEDS: HYDROmorphone 1 mg/mL INJ 1 mL 0.5 MG IVP ×2 (13:42→13:52)
--- NOTE | 2022-09-03 14:23 | SUR.PHASEI ---
PT TO FLOOR WITH WAYS OPERATOR UPDATED AND WILL WALK UP TO FLOOR WITH PT AND RN. PT ON FLOOR BED DRAIN COMPRESSED WIITH APPROX 10 ML IN NOT EMPTIED, SAMANO PATENT OF APPROX 50 ML YELLOW URINE TO TUBING AND BAG NOT EMPTIED, LOW BACK DRESSING D;I PT ASSESSMENT UNCHANGED, VSS.
[2022-09-03] MEDS: lactated ringers 1,000 ML 90 ML IV (14:52)
[2022-09-03] MEDS: ketorolac 30 mg/mL INJ IVP ×2 (15:11→22:07)
[2022-09-03] MEDS: albuterol 2.5 mg/3 mL Neb INHALATION ×2 (15:24→20:14)
--- NOTE | 2022-09-03 16:00 | ANE.PACU2 ---
Inpatient post-anesthesia follow up: Airway intact: Yes Vital signs: Temperature 98.2 F Pulse Rate 55 Respiratory Rate 17 Blood Pressure 115/65 Pulse Oximetry 91 Oxygen Delivery Me thod Nasal Cannula Oxygen Flow Rate 2 Fraction of Inspir ed Oxygen Hydration adequate: Yes Nausea and vomiting: No Pain level: 1 Mental status: Baseline
[2022-09-03] MEDS: HYDROcodone-acetaminophen 5-325 mg Tablet PO ×2 (16:33→20:26)
[2022-09-03] MEDS: docusate sodium 100 mg Capsule PO (17:00)
--- NOTE | 2022-09-03 17:59 | PC.NURSE ---
Patient arrived to unit post procedure from PACU via gurney, minimal c/o pain and discomfort at time of arrival. Ernandez patent and draining, hemovac in place and patent with copious serous drainage. VSS, AAOx4, wound dressing clean, dry and intact. Patient OOBTC with minimal discomfort. No needs at this time, at bedside, took wallet home and brought patients dentures. Room is clean and clutter free with call light in reach. No needs at this time and all questions answered.
[2022-09-03] MEDS: budesonide 0.5 mg/2 mL Neb INHALATION (20:15)
--- NOTE | 2022-09-03 23:00 | PC.NURSE ---
Nurse went to check on patient again. Patient appears to be sleeping with respirations. Will monitor.
[2022-09-04] MEDS: lactated ringers 1,000 ML 90 ML IV (00:27)
[2022-09-04] MEDS: ceFAZolin 2,000 MG in sodium chloride 0.9% (plus) 50 ML 100 MG IV ×2 (00:27→09:04)
[2022-09-04] MEDS: HYDROcodone-acetaminophen 5-325 mg Tablet PO ×3 (00:27→08:10)
[2022-09-04 02:39] VITALS: RESP 16
[2022-09-04] MEDS: morphine 4 mg/mL SDV 1 mL 1 MG IVP (02:39)
[2022-09-04 04:00] VITALS: BP 115/65; PULSE 55; RESP 17; TEMP 36.8; O2SAT 91
[2022-09-04] MEDS: ketorolac 30 mg/mL INJ IVP (06:25)
--- NOTE | 2022-09-04 07:34 | PM.PN ---
Subjective Subjective: POD 1 Patient walking the halls reports back and leg pain much improved. Denies any chest pain, shortness of breath, headaches. Vitals/I&O/Wt Last Vital Signs Temp 98.2 F 09/04/22 04:00 Pulse 55 L 09/04/22 04:00 Resp 17 09/04/22 04:00 BP 115/65 09/04/22 04:00 Pulse Ox 91 09/04/22 04:00 O2 Del Method 09/03/22 20:12 O2 Flow Rate 2 09/03/22 20:12 09/03/22 09/04/22 09/04/22 22:59 06:59 14:59 Intake Total 590 / 3140 2112.5 / 5252.5 Output Total 250 / 650 1175 / 1825 Balance 340 / 2490 937.5 / 3427.5 Physical Exam Narrative: Patient presents alert and oriented x3 with a good general appearance normal mood and affect. Normal coordination normal stability. Mild tenderness around the incisional site with the incision appear to be clean and dry with Hemovac intact. No signs of erythema or drainage. No signs of infection. Patient denies any fevers or chills. 5/5 motor strength both lower extremities with negative straight leg raise bilaterally. Calves are supple no medial thigh tenderness. Pulses are 2+ at the dorsalis pedis and posterior tibial region. Good capillary refill throughout normal sensation light touch both lower extremities. Urinary Catheter Management: Ernandez: Cath Placed During This Visit: yes, but has since been removed by the nurse Reason for Continuing Indwelling Catheter: Decision to DC Catheter Urinary Catheter Date of Insertion: 09/03/22 Urinary Catheter Time of Insertion: 10:15 Date Urinary Catheter Removed: 09/04/22 Time Urinary Catheter Discontinued: 05:15 A&P Assessment and plan (1) Status post lumbar spinal fusion: Physical therapy to mobilize. We will discontinue Hemovac drain with dressing change reapply Silverlon. Encourage incentive spirometry at home. We will see him back in the office in 1 week's time for wound check. Continue walking program no bending lifting or twisting activities. Attestations Medical Necessity Statement*: Home this morning Coding Level of Care Code Acute Parking Meter Installer for [facility] Diagnoses Status post lumbar spinal fusion Z98.1
[2022-09-04 07:51] VITALS: PULSE 56; RESP 20; O2SAT 94
[2022-09-04 08:00] VITALS: BP 115/57; PULSE 56; RESP 18; TEMP 36.6; O2SAT 92
[2022-09-04] MEDS: docusate sodium 100 mg Capsule PO (08:10)
[2022-09-04 10:19] VITALS: BP 115/57; PULSE 56; RESP 18; TEMP 36.6; O2SAT 92
--- NOTE | 2022-09-05 15:03 | P.DS_ITS ---
Discharge Providers Date of Admission: 09/03/22 13:19 Date of Discharge: September 05, 2022 Attending Provider at Admission: Foster Rao DO Attending Provider at Discharge: Foster Rao DO Primary Care Provider: Danny Negron Diagnoses at Discharge Discharge Diagnosis (1) Status post lumbar spinal fusion: Status: Acute Reason for Visit Reason for Visit: PLIF L4/5 Hospital Course Hospital Course uneventful Physical Exam Urinary Catheter Management: Ernandez: Cath Placed During This Visit: yes, but has since been removed by the nurse Reason for Continuing Indwelling Catheter: Decision to DC Catheter Urinary Catheter Date of Insertion: 09/03/22 Urinary Catheter Time of Insertion: 10:15 Date Urinary Catheter Removed: 09/04/22 Time Urinary Catheter Discontinued: 05:15 Discharge Data Studies Completed and Pending Completed Studies During Hospitalization Category Date Time Status XR lumbar spine 2-3V* [id number] Routine Exams 09/03/22 Completed Radiology Impressions Lumbar Spine X-Ray 09/03/22 00:00 IMPRESSION: Pedicle screw and interbody fusion device placement at L4-L5 as above. Laboratory Results Blood Type AB Positive 09/03/22 07:50 Rho(D) Type Positive 09/03/22 07:50 Antibody Screen Negative 09/03/22 07:50 Vitals Last Vital Signs Temp 98 F 09/04/22 10:19 Pulse 56 L 09/04/22 10:19 Resp 18 09/04/22 10:19 BP 115/57 09/04/22 10:19 Pulse Ox 92 09/04/22 10:19 O2 Del Method 09/04/22 07:51 O2 Flow Rate 2 09/03/22 20:12 Discharge Plan Discharge Patient Disposition: Home Condition: Stable Prescriptions: New hydrocodone-acetaminophen 5-325 mg Tablet 1 - 2 tab PO Q4H PRN (Reason: Postop pain) Qty: 40 0RF Continued hydrocodone-acetaminophen 5-325 mg tablet 1 tab PO BID PRN (Reason: pain) 30 Days Qty: 60 0RF Rx Instructions: patient may fill 30 days after previous refill. (DME) Intraoperative Neuromonitoring See Rx Instructions .Route .MEDSUPPLY Qty: 1 0RF Rx Instructions: Intraoperative Neuromonitoring albuterol sulfate [ProAir HFA] 90 mcg/actuation HFA aerosol inhaler 2 inh inhalation QID PRN (Reason: shortness of breath or wheezing) Qty: 8.5 0RF Symbicort 160-4.5 mcg/actuation HFA aerosol inhaler 2 inh INHALATION BID Wixela Inhub 1 puff inhalation QPM Discharge Orders: Discharge Order (Routine); Ordered 09/04/22 Ordered By: Mirza Baker Other Ambulatory Orders: DME: Walker (Order) Location: None Selected Ordered By: Foster Rao Referrals: Foster Rao DO [Physician] - 09/11/22 9:00 am Danny Negron [Primary Care Provider] - 09/05/22 9:00 am (Your follow up appointment will be with Kristy Almonte.) Discharge Diet: Advance as tolerated Discharge Activity: Limit activity as instructed Patient Instructions: Lumbar Spinal Fusion (DC) Activity Restrictions/Additional Instructions: Thank you for choosing [facility] for your care! The following is a list of instructions, from your provider, to follow upon your dis charge to ensure you have the optimal recovery from your recent injury or surgery. Follow-up care is a dumont part of your treatment and safety. Be sure to make and go to all appointments and call your doctor if you are having problems. If you do not already have a follow-up appointment made, call Dr. Rao's] office in the next 1-3 days to make follow up appointment for 1 weeks at [phone]. It is also a good idea to know your test results and keep a list of the medicines you take. Medications will be prescribed for you at your provider's discretion. These medications are to be used as instructed; if they are taken more often that prescribed they will not be refilled early and in most cases will not be refilled at all. > When a refill is needed, you should contact maggie tavera 2-3 business days before your prescription runs out. Medications will NOT be refilled by rodent control worker providers after hours! > Many pain medications contain Tylenol (Acetaminophen). Do not consume more than 4,000 mg of Tylenol per day in total with any combination of medications. > Pain medications can cause constipation. Please use an over the counter stool softener as directed, while taking pain medications. Consult your local pharmacist with questions or recommendations on stool softeners. If constipation persists, contact our office or your primary care provider. > While under our care, you are not to receive pain medications or other controlled substances from any other provider unless our office is notified and approves. Any attempts to do so will result in refusal to prescribe any further pain medications and possible dismissal from our practice. ? Walking is essential for the healing process after surgery. We would like you to slowly advance your walking. This should be done on relatively flat clear ground (inside or out) or can be done on a treadmill. Remember this goal does not have to happen all at once, slowly increase your d istance and duration. This can be broken into more more than one walk per day as tolerated. Patients who walk as directed after surgery rarely require Physical Therapy. In the unlikely event this issue arises your provider will direct hospital staff to make the appropriate arrangements. ? No lifting over 5 pounds {a gallon of milk) or bending/twisting until further notice. Each of these activities places an unnecessary amount of stress onto the body and can impede the delicate healing process. > Instead of bending at the waist, keep your back straight and bend at the knees. > Instead of twisting your torso, keep your back straight and turn your entire body with your feet. ? You may sleep in any position which makes you comfortable. Many patients find comfort sleeping in a reclining chair. It is not abnormal to have difficulty sleeping for the first several weeks following your surgery. We recommend trying Benadry! or Tylenol PM as directed to help with your sleeping difficulties. Both medications are over the counter and available without prescription. ? NO SMOKING!!! Smoking dramatically increases the probability of developing postoperative wound infections. ? Common complaints after lumbar and/or thoracic spine surgery include, but are not limited to: numbness and/or tingling in the legs, pain around the incision and surrounding tissues, muscle spasms, or stiffness of the middle to low back. Contact our office if these symptoms persist or if an acute change occurs. ? No driving for the first 3-5days, and not while taking narcotics until seen at your follow-up appointment and cleared. There are no restrictions for riding on short trips, however if you take a longer trip, arrangements should be made to make regular stops to get out of the vehicle and stretch . ? Swelling is an unfortunate event that will take place with any surgery and is the primary source of your postoperative discomfort. While walking and regular approved activities helps control inflammation, there are additional steps you can take to minimize swelling. > Place ice over the surgical site and surrounding tissue for twenty minutes, followed by applying a low/medium heat (heating pad) for an additional twenty minutes every 1-2 hours as needed for painrelief. > You may use of over the counter anti-inflammatory medications (Ibuprofen, Motrin, Aleve, Advil, etc) as directed on the package label. These types of medicines will significantly reduce the amount of discomfort you experience after surgery from swelling. It should be noted that if you have and allergy to any of these medications, or a history of ulcers or kidney disease you should consult you primary care provider prior to starting these medications. Discharge Attestations Time Spent in Discharge Care*: less than 30 min Quality Metrics Clinical Quality Measures [ No reported AMI, CVA or VTE this stay] Coding Level of Care Code Acute Chg FW DC note Diagnoses Status post lumbar spinal fusion Z98.1
== END 2022-09-04 10:20 | disposition home or self-care (01) | DRG 455 ==
LOC: MEDSURG 13:19
PROVIDERS: Admitting Provider Orthopaedic Surgery; PCP Family Medicine; Visit Provider Orthopaedic Surgery
PROC: 0SG00AJ Fusion of Lumbar Vertebral Joint with Interbody Fusion Device, Posterior Approach, Anterior Column, Open Approach (ICD-10-PCS; CPT 22612; principal; 2022-09-03 09:50)
DX: M43.16 Spondylolisthesis, lumbar region (principal); F17.200 Nicotine dependence, unspecified, uncomplicated; Z79.891 Long term (current) use of opiate analgesic; Z79.51 Long term (current) use of inhaled steroids
CPT/HCPCS: 36415; 51702; 72100; 76000; 86850; 86900; 94640; 97116; 97161; C1713; J0131; J0330; J0690; J1100; J1170; J1644; J1885; J2270; J2405; J2704; J3010; J3370; J3490; J3535; J7030; J7120; J7613; J7626

== ENCOUNTER → 2022-09-11 08:39 | Outpatient (BNVA) | payer MEDICARE, SELFPAY | PROVIDERS: PCP Family Medicine; Visit Provider Physician Assistant | DX: Z98.1 Arthrodesis status (principal) | CPT/HCPCS: 99024 ==

== ENCOUNTER → 2022-09-18 09:38 | Outpatient (BNVA) | payer MEDICARE, SELFPAY | PROVIDERS: PCP Family Medicine; Visit Provider Physician Assistant | DX: Z98.1 Arthrodesis status (principal) | CPT/HCPCS: 72100; 99024 ==

== ENCOUNTER → 2022-10-16 10:06 | Outpatient (BNVA) | payer BC, SELFPAY | PROVIDERS: PCP Family Medicine; Visit Provider Physician Assistant | DX: Z98.1 Arthrodesis status (principal) | CPT/HCPCS: 72100 ==

== ENCOUNTER → 2022-11-27 10:01 | Outpatient (BNVA) | payer BC, SELFPAY | PROVIDERS: PCP Family Medicine; Visit Provider Physician Assistant | DX: Z98.1 Arthrodesis status (principal) | CPT/HCPCS: 72100 ==

== ENCOUNTER → 2023-02-11 14:14 | Outpatient (BNVA) | payer OTHER, BC, SELFPAY | PROVIDERS: PCP Family Medicine; Visit Provider Nurse Practitioner | DX: Z79.899 Other long term (current) drug therapy (principal) | CPT/HCPCS: 80307 ==

== ENCOUNTER → 2023-05-21 09:03 | Outpatient (BNVA) | payer BC, SELFPAY | PROVIDERS: PCP Family Medicine; Visit Provider Physician Assistant | DX: Z98.1 Arthrodesis status (principal); Z98.890 Other specified postprocedural states | CPT/HCPCS: 72100 ==

== ENCOUNTER 2023-12-14 22:38 | Emergency (ER) | payer OTHER, SELFPAY ==
[2023-12-14 22:43] VITALS: BP 174/101; PULSE 95; RESP 16; TEMP 36.8; O2SAT 92; BMI 23.1
--- NOTE | 2023-12-14 22:44 | XRR_ITS ---
PROCEDURE INFORMATION: Exam: XR Chest Exam date and time: 12/14/2023 10:50 PM Age: 68 years old Clinical indication: Other: Poss CVA; Patient HX: Possible CVA. History of copd. TECHNIQUE: Imaging protocol: Radiologic exam of the chest. Views: 1 view. COMPARISON: CT abdomen pelvis con [id number] 03/18/2022 11:46 AM FINDINGS: Lungs: Unremarkable. No consolidation. Pleural spaces: Unremarkable. No pleural effusion. No pneumothorax. Heart/Mediastinum: Unremarkable. No cardiomegaly. Bones/joints: Unremarkable. XR/XR chest 1V portable [id number] IMPRESSION: No acute findings.
--- NOTE | 2023-12-14 22:44 | CTR_ITS ---
PROCEDURE INFORMATION: Exam: CTA Head With Contrast, Arteriography Exam date and time: 12/14/2023 10:58 PM Age: 68 years old Clinical indication: Stroke-like symptoms; RT upper extremity and RT lower extremity weakness; Additional info: CVA TECHNIQUE: Imaging protocol: Computed tomographic angiography of the head with contrast. Exam focused on the arteries. 3D rendering (Not supervised by radiologist): MIP and/or 3D reconstructed images were created by the technologist. Radiation optimization: All CT scans at this facility use at least one of these dose optimization techniques: automated exposure control; mA and/or kV adjustment per patient size (includes targeted exams where dose is matched to clinical indication); or iterative reconstruction. Contrast material: OMNI 350; Contrast volume: 100 ml; Contrast route: INTRAVENOUS (IV); COMPARISON: CT head thrombolytic [id number] 12/14/2023 10:54 PM RADIATION DOSE METRICS: Total DLP (mGy-cm): 468.87 FINDINGS: ANTERIOR CIRCULATION: Right internal carotid artery: Intracranial segment is patent with no significant stenosis. No aneurysm. Right middle cerebral artery: No occlusion or significant stenosis. No aneurysm. Right anterior cerebral artery: No occlusion or significant stenosis. No aneurysm. Left internal carotid artery: Intracranial segment is patent with no significant stenosis. No aneurysm. Left middle cerebral artery: No occlusion or significant stenosis. No aneurysm. Left anterior cerebral artery: No occlusion or significant stenosis. No aneurysm. POSTERIOR CIRCULATION: Right vertebral artery: No occlusion or significant stenosis. No aneurysm. Left vertebral artery: No occlusion or significant stenosis. No aneurysm. Basilar artery: No occlusion or significant stenosis. No aneurysm. Right posterior cerebral artery: No occlusion or significant stenosis. No aneurysm. Left posterior cerebral artery: No occlusion or significant stenosis. No aneurysm. Brain: No definite mass, mass effect, or midline shift. Cerebral ventricles: No ventriculomegaly. Bones/joints: Unremarkable. No acute fracture. Soft tissues: Unremarkable. PROCEDURE INFORMATION: Exam: CTA Neck With Contrast Exam date and time: 12/14/2023 10:58 PM Age: 68 years old Clinical indication: Stroke-like symptoms; RT upper extremity and RT lower extremity weakness; Additional info: CVA TECHNIQUE: Imaging protocol: Computed tomographic angiography of the neck with contrast. Exam focused on the cervical segments of the vasculature. 3D rendering (Not supervised by radiologist): MIP and/or 3D reconstructed images were created by the technologist. Radiation optimization: All CT scans at this facility use at least one of these dose optimization techniques: automated exposure control; mA and/or kV adjustment per patient size (includes targeted exams where dose is matched to clinical indication); or iterative reconstruction. Contrast material: OMNI 350; Contrast volume: 100 ml; Contrast route: INTRAVENOUS (IV); COMPARISON: CT head thrombolytic [id number] 12/14/2023 10:54 PM RADIATION DOSE METRICS: Total DLP (mGy-cm): 468.87 FINDINGS: Right common carotid artery: Small plaques in the right common carotid artery. Minimal stenosis. Negative for dissection. Right internal carotid artery: Large volume mixed plaque proximal right ICA. Mild stenosis. Negative for dissection. Right external carotid artery: No occlusion or stenosis of the origin. Left common carotid artery: Minimal noncalcified eccentric plaque left common carotid artery. Minimal stenosis. Negative for dissection. Left internal carotid artery: Extensive mixed plaque proximal left ICA. Very severe stenosis greater than 90%. Negative for dissection. Left external carotid artery: No occlusion or stenosis of the origin. Right vertebral artery: No stenosis. No dissection or occlusion. Left vertebral artery: No stenosis. No dissection or occlusion. Soft tissues: Normal. No significant soft tissue swelling. Bones/joints: No acute fracture. CT/CT angio headneck* [id number] IMPRESSION: No large vessel occlusion. IMPRESSION: 1. Severe left internal carotid artery stenosis estimated greater than 90%. 2. Mild severity right internal carotid artery stenosis estimated less than 50%. 3. Recommend carotid artery duplex ultrasound assessment for velocities and plaque characterization. REFERENCES: NASCET CRITERIA. The degree of stenosis in the cervical segment of the internal carotid artery is based on NASCET criteria. Normal is no stenosis. Mild is less than 50% stenosis. Moderate is 50-69% stenosis. Severe is 70% to 99% stenosis. Total occlusion is no detectable patent lumen.
--- NOTE | 2023-12-14 22:44 | CTR_ITS ---
PROCEDURE INFORMATION: Exam: CT Head Without Contrast Exam date and time: 12/14/2023 10:54 PM Age: 68 years old Clinical indication: Stroke-like symptoms; RT upper extremity and RT lower extremity weakness; Additional info: RT upper and lower ext weakness/numbness. TECHNIQUE: Imaging protocol: Computed tomography of the head without contrast. Radiation optimization: All CT scans at this facility use at least one of these dose optimization techniques: automated exposure control; mA and/or kV adjustment per patient size (includes targeted exams where dose is matched to clinical indication); or iterative reconstruction. Other technique: STROKE PROTOCOL was implemented. COMPARISON: No relevant prior studies available. RADIATION DOSE METRICS: Total DLP (mGy-cm): 1054.48 FINDINGS: Brain: There is mild cerebral atrophy. There is mild diffuse heterogeneity of the white matter attenuation, consistent with chronic white matter ischemic changes. Negative for acute intracranial hemorrhage. Negative for intracranial mass. No focal acute brain ischemia identified. Negative for midline shift of brain. [place] might matter interfaces are unremarkable. Cerebral ventricles: No ventriculomegaly. Paranasal sinuses: Small volume right maxillary sinus fluid. Mastoid air cells: Visualized mastoid air cells are well aerated. Bones/joints: Unremarkable. No acute fracture. Soft tissues: Unremarkable. CT/CT head thrombolytic [id number] IMPRESSION: Negative for acute intracranial pathology. ASSESSMENT: ASPECTS ([place] Stroke Program Early CT Score) is 10.
[2023-12-14 22:52] LABS: Glucose Point of Care 127 mg/dL (70-110)
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
[2023-12-14 22:56] LABS: Basophils # 0.1 10^3/uL (0.0-0.1); Eosinophils # 0.5 10^3/uL (0.0-0.8); Eosinophils % 5.5 %; Hematocrit 42.9 % (37-53); Lymphocytes % 32.9 %; Mean Corpuscular HGB Conc 31.5 g/dL (30-55); Mean Corpuscular Hemoglobin 32.6 pg (27-33); Mean Corpuscular Volume 103.6 fl (82-101); Mean Platelet Volume 8.8 fL (7.4-10.4); Monocytes # 0.7 10^3/uL (0.2-0.9); Monocytes % 7.9 %; Neutrophils # 4.81 10^3/uL (1.8-7.7); Neutrophils % 52.3 %; Nucleated Red Blood Cells % 0 %; Platelet Count 226 10^3/cmm (157-399); Red Blood Count 4.14 10^6/uL (3.85-5.65); Red Cell Distribution Width 13.8 % (12.1-15.1); White Blood Count 9.21 10^3/uL (3.29-11.43)
[2023-12-14] MEDS: iohexol 350 mg/mL 500 mL Btl (per mL) IV (22:59)
[2023-12-14 23:07] LABS: INR 0.94 (0.8-1.2)
[2023-12-14 23:08] LABS: Partial Thromboplastin Time 28.1 SECONDS (23.9-36.7)
[2023-12-14 23:13] LABS: Alanine Aminotransferase 12 U/L (0-41); Albumin Level 3.8 g/dL (3.5-5.2); Alkaline Phosphatase 64 U/L (40-130); Anion Gap 12.9 (5-19); Aspartate Amino Transferase 16 U/L (0-40); Blood Urea Nitrogen 9 mg/dL (8-23); Calcium 8.8 mg/dL (8.5-10.5); Carbon Dioxide 29 mmol/L (22-29); Chloride 100 mmol/L (98-107); Globulin 3.9 g/dL (1.3-4.6); Glomerular Filtration Rate 112.5 mL/min (90-130); Glucose 131 mg/dL (65-115); Osmolality Calculated 286 mOsm/kg (285-295); Potassium 3.9 mmol/L (3.5-5.1); Sodium 138 mmol/L (136-145); Total Bilirubin 0.2 mg/dL (0.15-1.2); Total Protein 7.7 g/dL (6.6-8.7)
[2023-12-14 23:15] LABS: Alcohol Level < 10 mg/dL (0-10)
[2023-12-14] MEDS: aspirin 81 mg Chew Tablet 324 MG PO (23:18)
[2023-12-14 23:19] VITALS: BP 155/92; PULSE 81; RESP 16; O2SAT 95
--- NOTE | 2023-12-14 23:22 | ECG_ITS ---
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 Measurements Intervals [place] Rate: 74 P: 81 IL: 142 QRS: 77 QRSD: 98 T: 75 QT: 391 QTc: 434 Interpretive Statements SINUS RHYTHM WITH OCCASIONAL SUPRAVENTRICULAR PREMATURE COMPLEXES Compared to ECG 08/27/2022 09:27:29 Sinus arrhythmia no longer present Electronically Signed On 12-15-2023 10:24:25 CDT by Lucho Stearns M.D. [id number]
[2023-12-14 23:48] LABS: Add Urine Microscopic? NO; Charge for UA Resulting for Rev
[2023-12-14 23:50] LABS: Bilirubin Urine Neg (Negative); Blood Urine Neg (Negative); Glucose Urine UA Norm (Normal); Ketones Urine Negative (Negative); Leukocyte Esterase Urine Negative (Negative); Nitrate Urine Negative (Negative); Protein Urine Neg (Negative); Urine Appearance Clear (CLEAR); Urine Color Dark Yellow (Yellow); Urobilinogen Urine 1 mg/dL (Negative); pH Urine 5 (5-7)
[2023-12-14 23:58] LABS: Amphetamines Screen Urine Negative (Negative); Barbiturates Screen Urine Negative (Negative); Benzodiazepines Screen Urine Negative (Negative); Cocaine Screen Urine Negative (Negative); Opiate Screen Urine Negative (Negative); PCP Screen Urine Negative (Negative); THC Screen Urine Negative (Negative)
[2023-12-15 01:03] VITALS: BP 148/90; PULSE 68; RESP 16; O2SAT 91
[2023-12-15 01:57] VITALS: BP 148/90; PULSE 68; RESP 16; TEMP 36.8; O2SAT 91
== END 2023-12-15 03:05 | disposition short-term general hospital (02) ==
PROVIDERS: Emergency Provider Emergency Medicine; PCP Family Medicine
DX: I63.9 Cerebral infarction, unspecified (principal); Z72.0 Tobacco use
CPT/HCPCS: 36416; 70450; 70496; 70498; 71045; 80053; 80306; 80307; 81003; 82962; 85025; 85610; 85730; 93005; 99285; Q9967

== ENCOUNTER → 2024-05-28 14:56 | Outpatient (BNVA) | payer MEDICARE, SELFPAY | PROVIDERS: PCP Family Medicine; Visit Provider Orthopaedic Surgery | DX: Z98.1 Arthrodesis status (principal) | CPT/HCPCS: 72100; 99213 ==

== ENCOUNTER → 2024-10-20 15:37 | Outpatient (BNVA) | payer MEDICARE, SELFPAY | PROVIDERS: PCP Family Medicine; Visit Provider Orthopaedic Surgery | DX: M54.9 Dorsalgia, unspecified (principal); Z98.1 Arthrodesis status | CPT/HCPCS: 72110; 99024 ==

== ENCOUNTER → 2024-11-12 12:23 | Outpatient (BNVA) | payer MEDICARE, SELFPAY | PROVIDERS: PCP Family Medicine; Visit Provider Internal Medicine | DX: R07.9 Chest pain, unspecified (principal); I49.3 Ventricular premature depolarization | CPT/HCPCS: 93005; 99204 ==

== ENCOUNTER → 2024-11-24 09:49 | Outpatient (BNVA) | payer MEDICARE, SELFPAY | PROVIDERS: PCP Family Medicine; Visit Provider Orthopaedic Surgery | DX: Z98.1 Arthrodesis status (principal) | CPT/HCPCS: 72100; 99213 ==

== ENCOUNTER 2025-07-15 13:22 | Emergency (ER) | payer MEDICARE, SELFPAY ==
[2025-07-15 13:25] VITALS: BP 191/118; PULSE 81; RESP 16; TEMP 36.8; O2SAT 91; BMI 24.0
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
--- NOTE | 2025-07-15 13:30 | CT_ITS ---
WS: [id number] CT CERVICAL TRAUMA TECHNIQUE: Noncontrast CT of the cervical spine with coronal and sagittal reformatted images. CLINICAL INFORMATION: injury COMPARISON: None. DLP: 211.[address] scans at [facility] use at least one of these dose optimization techniques: automated exposure control; mA and/or kV adjustment per patient size (includes targeted exams where dose is matched to clinical indication); or iterative reconstruction. FINDINGS: Straightening of the normal cervical lordosis. Slight anterolisthesis C4 on C5 and C5 on C6. Normal craniocervical junction. Normal C1-C2 articulation. Dens is normal in appearance. Normal occipital condyles. No high-grade spinal canal narrowing. Normal C1 ring. No evidence of acute fracture or dislocation. Normal prevertebral soft tissues. Mastoids air cells are well aerated. CT/CT cervical spin wo con* [id number] IMPRESSION: No evidence of acute fracture or dislocation.
--- NOTE | 2025-07-15 13:30 | CT_ITS ---
WS: [id number] CT LUMBAR SPINE TECHNIQUE: Noncontrast CT of the lumbar spine with coronal and sagittal reformatted images. CLINICAL INFORMATION: injury COMPARISON: None. DLP: 1221.[address] scans at [facility] use at least one of these dose optimization techniques: automated exposure control; mA and/or kV adjustment per patient size (includes targeted exams where dose is matched to clinical indication); or iterative reconstruction. FINDINGS: Mild lumbar curve. No acute compression. Pedicle screw fixation L4-5 with interbody fusion grafts. Grade 1 anterolisthesis L4 on L5. Hardware appears intact. Laminectomy defects lower lumbar spine. Adrenal glands are normal. Tiny amount of sludge in the gallbladder. Vascular calcification. Slightly ectatic distal abdominal aorta measuring 2.2 x 2.3 cm AP by transverse. Sigmoid diverticulosis. CT/CT lumbar spine wo con* [id number] IMPRESSION: No acute traumatic lumbar spine findings
[2025-07-15 13:46] LABS: Glucose Urine UA Negative (Normal); Nitrate Urine Negative (Negative); Specific Gravity, Urine 1.011 (1.005-1.030)
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
[2025-07-15 14:14] LABS: Add Urine Microscopic? YES
[2025-07-15] MEDS: orphenadrine 30 mg/mL Inj 2 mL 60 MG IM (14:43)
[2025-07-15 14:44] VITALS: BP 123/78; PULSE 78; O2SAT 98
[2025-07-15] MEDS: HYDROcodone-acetaminophen 10-325 mg Tablet 1 TAB PO (16:01)
[2025-07-15 16:05] VITALS: BP 157/80; PULSE 96; RESP 17; O2SAT 98
== END 2025-07-15 16:07 | disposition home or self-care (01) ==
PROVIDERS: Emergency Provider Physician Assistant; PCP Family Medicine
DX: T14.8XXA Other injury of unspecified body region, initial encounter (principal); V89.2XXA Person injured in unspecified motor-vehicle accident, traffic, initial encounter; R91.8 Other nonspecific abnormal finding of lung field; Z79.82 Long term (current) use of aspirin
CPT/HCPCS: 72125; 72128; 72131; 73030; 81001; 96372; 99284; J1885; J2360; J9999

== ENCOUNTER 2025-09-26 13:09 | Observation (INO) | payer MEDICARE, SELFPAY ==
[2025-09-26] VITALS (9 sets, daily range): BP systolic 116–151; BP diastolic 54–77; PULSE 79–96; RESP 17–25; TEMP 37.3–39.1; O2SAT 89–94; BMI 21.7
--- OUTSIDE RECORDS SUMMARY | 2025-09-26 13:18 | XMS_ITS | Encounter Summary ---
Author Organization [facility] Address [address] [place] [address] Care Team Providers Care Player Development Executive Name Role Phone Estephania Maher MD Primary Care Provider [phone] Encounter Details Date Type Department Care Team (Latest Contact Info) Description 05/12/2003 Outpatient Historical [facility] [place] [address] [phone] Tierra Talbot MD NO ADDRESS ON FILE JOINT PAIN-SHLDER (Primary Dx); ABDOMINAL PAIN RUQ Social History Tobacco Use Types Packs/Day Years Used Date Smoking Tobacco: Never Assessed Sex and Gender Information Value Date Recorded Sex Assigned at Not on file 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
--- OUTSIDE RECORDS SUMMARY | 2025-09-26 13:18 | XMS_ITS | Encounter Summary ---
Author Organization [facility] Address [address] [place] [address] Care Team Providers Care Lei Maker Name Role Phone Estephania Maher MD Primary Care Provider [phone]- [phone] Encounter Details Date Type Department Care Team (Latest Contact Info) Description 02/16/2000 Outpatient Historical [facility] [place] [address] [phone] Nathaniel Sky DO NO ADDRESS ON FILE Acute pharyngitis (Primary Dx); Impacted cerumen Social History Tobacco Use Types Packs/Day Years Used Date Smoking Tobacco: Never Assessed Sex and Gender Information Value Date Recorded Sex Assigned at Not on file 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
--- OUTSIDE RECORDS SUMMARY | 2025-09-26 13:18 | XMS_ITS | Encounter Summary ---
Author Organization [facility] Address [address] [place] [address] Care Team Providers Care Load Checker Name Role Phone Estephania Maher MD Primary Care Provider [phone]- [phone] Encounter Details Date Type Department Care Team (Latest Contact Info) Description 12/06/1998 Outpatient Historical [facility] [place] [address] [phone] Nathaniel Sky DO NO ADDRESS ON FILE Dysfunct eustachian tube (Primary Dx); Counseling on other sexually transmitted diseases; Dizziness and giddiness Social History Tobacco Use Types Packs/Day Years Used Date Smoking Tobacco: Never Assessed Sex and Gender Information Value Date Recorded Sex Assigned at Not on file 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
--- OUTSIDE RECORDS SUMMARY | 2025-09-26 13:18 | XMS_ITS | Encounter Summary ---
Author Organization [facility] Address [address] [place] [address] Care Team Providers Care Agricultural Technician Name Role Phone Estephania Maher MD Primary Care Provider [phone]- [phone] Encounter Details Date Type Department Care Team (Latest Contact Info) Description 10/05/2004 Outpatient Historical [facility] [place] [address] [phone] Roberto Higgins NP NO ADDRESS ON FILE ACUTE SINUSITIS NOS (Primary Dx); ACUTE BRONCHITIS Social History Tobacco Use Types Packs/Day Years Used Date Smoking Tobacco: Never Assessed Sex and Gender Information Value Date Recorded Sex Assigned at Not on file 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
--- OUTSIDE RECORDS SUMMARY | 2025-09-26 13:18 | XMS_ITS | Clinical Summary ---
Author Organization [facility] Address [address] [place] [address] Care Team Providers Care Spinner Box Name Role Phone Estephania Maher MD Primary Care Provider Allergies Active Allergy Reactions Criticality Noted Date Comments Codeine Rash Low 05/29/2012 Medications acetaminophen (TYLENOL) 500 mg tablet Take 500 mg by mouth every 6 hours as needed. Active ibuprofen (MOTRIN) 200 mg tablet Take 200 mg by mouth every 6 hours as needed for Pain, Mild. Active sildenafil, antihypertensive , (REVATIO) 20 mg Tablet TAKE 1-2 TABLETS BY MOUTH 1 HOUR PRIOR TO ACTIVITY 20 Tablet 5 9 Active HYDROcodone-acet aminophen (NORCO) 5-325 mg tabletIndication s:Right-sided low back pain without sciatica, unspecified chronicity Take 1 Tablet by mouth 2 times daily as needed for Pain, Severe. Max Daily Amount: 2 Tablets 60 Tablet 1 Active albuterol HFA 90 mcg inhalerIndicatio ns:Right-sided low back pain with right-sided sciatica, unspecified chronicity Take 1 Puff by inhalation 2 times daily as needed for Wheezing. 20.1 Gram 3 1 Active celecoxib (CeleBREX) 200 mg capsule Take 1 Capsule (200 mg) by mouth 2 times daily. 180 Capsule 1 1 Active Active Problems Problem Noted Date Diagnosed Date DDD (degenerative disc disease), cervical 2017 Special screening for malignant neoplasms, colon 07/18/2012 Prostate cancer screening 06/26/2012 Overview (06/28/2012): PSA: 06/18 Cervical radiculopathy 06/25/2012 History of migraine headaches 06/06/2012 Colon cancer screening 06/06/2012 Overview (07/31/2012): Colonoscopy: 07/18 (no polyps) Tobacco abuse 12/10/2008 Overview (06/06/2012): 1 ppd (05/18) Immunizations Immunization Administration Dates Next Due (ADACEL/BOOSTRIX)(10 YR UP) TDAP VACCINE, 0.5ML, IM 09/15/2010 Influenza Vaccine Split 3+ Yrs PF IM 06/26/2012 Family History Medical History Relation Name Comments Heart Disease Father Unknown Maternal Grandfather Unknown Maternal Grandmother Healthy Mother Unknown Mother when pt wa s 6 Unknown Paternal Grandfather Unknown Paternal Grandmother Breast Cancer Neg Hx Colon Cancer Neg Hx Relation Name Status Comments Father Maternal Grandfather Maternal Grandmother Mother Paternal Grandfather Paternal Grandmother Social History Tobacco Use Types Packs/Day Years Used Date Smoking Tobacco: Every Day Cigarettes 1 25 Smokeless Tobacco: Current Chew Tobacco Cessation:Ready to Q uit: No; Counseling Given: Yes Comments:3 cans per week Alcohol Use Standard Drinks/Week Comments Yes 5 (1 standard drink = 0.6 oz pur e alcohol) month Sex and Gender Information Value Date Recorded Sex Assigned at Not on file 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 Gender Identity Not on file Sexual Orientation Not on file Occupation Industry Job Start Date Job End Date Not on file Not on file Not on file Not on file Last Filed Vital Signs Vital Sign Reading Time Taken Comments Blood Pressure 138/88 01/18/2021 8:07 AM CDT Pulse 55 01/18/2021 8:07 AM CDT Temperature 36.6 C (97.9 F) 12/28/2020 12:19 PM CDT Respiratory Rate 16 12/28/2020 12:19 PM CDT Oxygen Saturation 94% 01/18/2021 8:07 AM CDT Inhaled Oxygen Concentration - - Weight 97.5 kg (215 lb) 01/18/2021 8:07 AM CDT Height 185.4 cm (6' 1 ) 01/18/2021 8:07 AM CDT Body Mass Index 28.37 01/18/2021 8:07 AM CDT Plan of Treatment Health Maintenance Due Date Last Done Comments DIABETES ANNUAL FOOT EXAM 1974 DIABETES ANNUAL RETINAL EXAM 1974 DIABETES HBA1C Q 6 MONTHS 1974 DIABETES MICROALBUMIN ANNUAL SCREEN 1974 LDL CHOLESTEROL ANNUAL 1974 PNEUMOCOCCAL VACCINE 50+ YEA RS (1 of 2 - PCV) 1975 FIT-DNA Q 3 years 2001 FIT/FOBT Q 1 year 2001 Flex Sig/CT Colonography Q 5 years 2001 RSV VACCINE (60+ or ) (1 - Risk 50-74 years 1-dose series) 2006 ZOSTER VACCINE (1 of 2) 2006 DTAP/TDAP/TD VACCINES (2 - Td or Tdap) 09/15/2020 Preventative Visit- Commercial 10/07/2024 INFLUENZA VACCINE (#1) 2025 08/08/2020, 2011 COLORECTAL SCREENING 02/29/2032 02/28/2022, 07/25/20 12 Colorectal Cancer Screening 02/29/2032 Insurance [employer] Care Teams Spinner Box Relationship Specialty Start Date End Date sEtephania Maher MD [address] [facility] [address] [place] [phone] PCP - General Family Practice 06/25/18
--- OUTSIDE RECORDS SUMMARY | 2025-09-26 13:18 | XMS_ITS | Encounter Summary ---
Author Organization [facility] Address [address] [place] [address] Care Team Providers Care Bookseamer Blindstitch Name Role Phone Estephania Maher MD Primary Care Provider Encounter Details Date Type Department Care Team (Latest Contact Info) Description 04/12/2003 Outpatient Historical [facility] Family Medicine- [address] [place] [phone] Tierra Talbot MD NO ADDRESS ON FILE JOINT PAIN-SHLDER (Primary Dx); CERVICALGIA; SPASM OF MUSCLE Social History Tobacco Use Types Packs/Day Years Used Date Smoking Tobacco: Never Assessed Sex and Gender Information Value Date Recorded Sex Assigned at Not on file 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
--- OUTSIDE RECORDS SUMMARY | 2025-09-26 13:18 | XMS_ITS | Encounter Summary ---
Author Organization [facility] Address [address] [place] [address] Care Team Providers Care Sap Basis Architect Name Role Phone Estephania Maher MD Primary Care Provider [phone]- [phone] Encounter Details Date Type Department Care Team (Latest Contact Info) Description 12/20/1998 Outpatient Historical [facility] Medicine [place] [address] [phone] Nathaniel Sky DO NO ADDRESS ON FILE Other reasons for seeking consultation (Primary Dx) Social History Tobacco Use Types Packs/Day Years Used Date Smoking Tobacco: Never Assessed Sex and Gender Information Value Date Recorded Sex Assigned at Not on file 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
--- OUTSIDE RECORDS SUMMARY | 2025-09-26 13:18 | XMS_ITS | Encounter Summary ---
Author Organization [facility] Address [address] [place] [address] Care Team Providers Care Field Operator Name Role Phone Danny Negron MD Primary Care Provider [phone] Reason for Visit * Reason Onset Date Comments Medication Refill 07/25/2021 Encounter Details Date Type Department Care Team (Late st Contact Info) Description 07/25/[address] [facility] Contact [facility] Clinics [address] [place] [phone] Estephania Maher MD [address] [facility] [address] [place] [address] Medication Refill Social History Tobacco Use Types Packs/Day Years Used Date Smoking Tobacco: Every Day Cigarettes Smokeless Tobacco: Current Comments:Quit smokin can s per week Alcohol Use Standard Drinks/Week Comments Yes 5 (1 standard drink = 0.6 oz pur e alcohol) Sex and Gender Information Value Date Recorded Sex Assigned at Not on file Legal Sex Male 6:44 AM [employer] Gender Identity Not on file Sexual Orientation Not on file COVID-19 Exposure Response Date Recorded In the last month, have you been in contact with someone who was confirmed or suspected to have Coronavirus / COVID-19? Unable to assess 07/25/2021 11:45 AM CD T documented as of this encounter Miscellaneous Notes * Telephone Encounter - Percy Good - 07/25/2021 11:47 AM CDT Pt calls for Rx refill Erasmokathleen Vance Pascual at [phone] (home) called about Rx refill of albuterol HFA 90 mcg inhaler The patient's preferred pharmacy is [facility] [address] [place] [address] [address] documented in this encounter Plan of Treatment Upcoming Encounters Date Type Department Care Team (Late st Contact Info) Description 11/29/2025 9:20 AM [employer] Office Visit [address] [phone] Danny Negron MD [address] [phone] documented as of this encounter Visit Diagnoses Not on filedocumented in this encounter Additional Health Concerns Infection Onset Date Last Indicated Resolved Time Influenza 09/25/2022 09/25/2022 10/02/2022 1:16 AM [employer] Influenza 03/08/2023 03/08/2023 10/11/2023 1:17 AM [employer] documented as of this encounter Care Teams Field Operator Relationship Specialty Start Date End Date Danny Negron MD [address] [phone] PCP - General Family Practice 09/18/21 documented as of this encounter
--- OUTSIDE RECORDS SUMMARY | 2025-09-26 13:18 | XMS_ITS | Clinical Summary ---
Author Organization [facility] Address [address] [place]: Epic Prelude ADT [place]IL[place]NA [place] [address] Care Team Providers Care Loading Machine Adjuster Name Role Phone Danny Negron MD Primary Care Provider [phone] Allergies No known active allergies Medications aspirin (CHARLY CHEWABLE) 81 mg Tablet, Chewable Take 1 Tablet (81 mg) by mouth daily with breakfast. 12/20/19 24 Active albuterol sulfate HFA 90 mcg/actuation aerosol inhalerIndications: Simple chronic bronchitis (CMS/HCC) Take 2 Puffs by inhalation every 4 hours as needed for Shortness of Breath. 20.1 Gram 11 02/05/20 25 Active budesonide-formoter oL (SYMBICORT) 160-4.5 mcg/actuation HFA Aerosol InhalerIndications: Simple chronic bronchitis (CMS/HCC) Take 2 Puffs by inhalation 2 times daily. 10.2 Gram 11 02/05/20 25 Active CALCIUM CARBONATE-VITAMIN D3 ORAL Take 1 Tablet by mouth daily. Vit unknown strength Active butalbital-acetamin ophen-caffeine (FIORICET) 50-325-40 mg tabletIndications:I ntractable migraine without aura and without status migrainosus Take 1 Tablet by mouth every 6 hours as needed for Headaches. 60 Tablet 5 08/27/20 25 Active cetirizine (ZyrTEC) 10 mg tabletIndications:S imple chronic bronchitis (CMS/HCC) Take 1 Tablet (10 mg) by mouth daily. 90 Tablet 3 08/27/20 25 Active rosuvastatin (Crestor) 10 mg tabletIndications:A therosclerosis of both carotid arteries,History of CVA in adulthood,Type 2 diabetes mellitus with microalbuminuria, without long-term current use of insulin (CMS/HCC),Aortic atherosclerosis Take 1 Tablet (10 mg) by mouth daily. 100 Tablet 3 08/27/20 25 Active fluticasone propionate (FLONASE) 50 mcg/spray [place], Suspension nasal inhalerIndications: Simple chronic bronchitis (CMS/HCC) Administer 2 Sprays in each nostril daily. 16 Gram 08/27/20 25 Active HYDROcodone-acetami nophen (NORCO) 5-325 mg tabletIndications:C hronic bilateral low back pain with right-sided sciatica,Cervical radiculopathy,DDD (degenerative disc disease), cervical,Osteoarthr itis of spine with radiculopathy, lumbar region Take 1 Tablet by mouth every 8 hours as needed for Pain, Moderate. Max Daily Amount: 3 Tablets 90 Tablet 09/01/20 25 Active HYDROcodone-acetami nophen (NORCO) 5-325 mg tabletIndications:C hronic bilateral low back pain with right-sided sciatica,Cervical radiculopathy,DDD (degenerative disc disease), cervical,Osteoarthr itis of spine with radiculopathy, lumbar region Take 1 Tablet by mouth every 8 hours as needed for Pain, Moderate. Max Daily Amount: 3 Tablets 90 Tablet 08/05/20 25 025 Discontinu ed(Reorder ) doxycycline hyclate (VIBRAMYCIN) 100 mg tabletIndications:S imple chronic bronchitis (CMS/HCC) Take 1 Tablet (100 mg) by mouth 2 times daily for 10 days. 20 Tablet 08/27/20 25 025 predniSONE (DELTASONE) 20 mg tabletIndications:S imple chronic bronchitis (CMS/HCC) Take 2 Tablets (40 mg) by mouth daily for 5 days. 10 Tablet 08/27/20 25 025 Active Problems Problem Noted Date Diagnosed Date Influenza vaccination declined 08/03/2024 Nonspecific abnormal electrocardiogram (ECG) (EK G) 03/05/2024 Precordial pain 03/04/2024 QT prolongation 03/04/2024 History of CVA in adulthood 12/27/2023 Sinus bradycardia 12/18/2023 Stenosis of left carotid artery 12/18/2023 History of carotid endarterectomy 12/18/2023 Pre-op evaluation 12/17/2023 RUE weakness 12/15/2023 Nicotine dependence 12/15/2023 Atherosclerosis of both carotid arteries 024 Statin myopathy 07/19/2023 Type 2 diabetes mellitus wit h microalbuminuria, without long-term current use of insulin 04/15/2023 Intractable migraine without aura and without status migrainosus 03/08/2023 Osteoarthritis of spine with radiculopathy, lumb ar region 07/23/2022 terminologist prescription opiate use 07/23/2022 Aortic atherosclerosis 04/16/2022 Chronic bilateral low back pain with right-sided sciatica 09/18/2021 Simple chronic bronchitis 09/18/2021 ED (erectile dysfunction) 09/18/2021 DDD (degenerative disc disease), cervical 2017 Cervical radiculopathy 06/25/2012 History of migraine headaches 06/06/2012 Tobacco abuse 12/10/2008 Overview (02/02/2021): 1 ppd (05/18) Resolved Problems Problem Noted Date Diagnosed Date Resolved Date Bradycardia 12/19/2023 12/27/2023 Acute circulatory failure 12/18/2023 Acute ischemic left ICA stroke 12/15/2023 12/27/2023 Special screening for malign ant neoplasms, colon 07/18/2012 09/18/2021 Prostate cancer screening 06/26/2012 Overview (02/02/2021): PSA: 06/18 Colon cancer screening 06/06/201209/18 Overview (02/02/2021): Colonoscopy: 07/18 (no polyps) Encounters Date Type Department Care Team Description 09/07/2025 External Device Data [facility] ABSTRACTION Provider, Abstract 09/01/[address] [phone] Danny Negron MD Chronic bilateral low back pain with right-sided sciatica; Cervical radiculopathy; DDD (degenerative disc disease), cervical; Osteoarthritis of spine with radiculopathy, lumbar region 08/27/2025 9:00 AM RECREATION ATTENDANT Office Visit [address] [address] Danny eNgron MD Simple chronic bronchitis (CMS/HCC) (Primary Dx); Intractable migraine without aura and without status migrainosus; Atherosclerosis of both carotid arteries; History of CVA in adulthood; Type 2 diabetes mellitus with microalbuminuria, without long-term current use of insulin (CMS/HCC); Aortic atherosclerosis 08/24/2025 External Device Data [facility] ABSTRACTION Provider, Abstract 08/05/[address] [address] Danny Negron MD Chronic bilateral low back pain with right-sided sciatica; Cervical radiculopathy; DDD (degenerative disc disease), cervical; Osteoarthritis of spine with radiculopathy, lumbar region 07/09/[address] [address] Danny Negron MD Chronic bilateral low back pain with right-sided sciatica; Cervical radiculopathy; DDD (degenerative disc disease), cervical; Osteoarthritis of spine with radiculopathy, lumbar region from Last 3 Months Immunizations Immunization Administration Dates Next Due (ADACEL/BOOSTRIX)(10 [...] Used Date Smoking Tobacco: Every Day Cigarettes 0.5 1.7 Started: 01/10/2024; Last attempted to quit: 12/25/2023 Smokeless Tobacco: Current Chew Tobacco Cessation:Ready to Q uit: Not Asked; Counseling Given: Not Answered Comments:Smokes between 5 -7 cigarettes per day Alcohol Use Standard Drinks/Week Comments Yes 5 (1 standard drink = 0.6 oz pur e alcohol) Financial Resource Strain Answer Date R ecorded How hard is it for you to pa y for the very basics like food, housing, medical care, and heating? Hard 04/16/2022 Food Insecurity Answer Date Recorded In the past 12 months, have you worried that your food would run out before you had money to buy more? Never true 04/16/2022 In the past 12 months, did y ou run out of food and didn't have money to buy more? Never true 04/16/2022 Transportation Needs Answer Date Record ed In the past 12 months, has l ack of transportation kept you from medical appointments or from getting medications? No 04/16/2022 Lack of Transportation (Non-Medical) Not on file 04/16/2022 Feeling Safe Answer Date Recorded Are you in a relationship wi th someone who hurts you emotionally and/or physically? No 03/04/2024 Food Insecurity Answer Date Recorded Social/Environmental Concerns No concerns Transportation Needs Answer Date Record ed Social/Environmental Concerns No concerns Housing Stability Answer Date Recorded Social/Environmental Concerns No concerns Utility Needs Answer Date Recorded Social/Environmental Concerns No concerns Sex and Gender Information Value Date Recorded Sex Assigned at Not on file Legal Sex Male 6:44 AM RECREATION ATTENDANT Gender Identity Not on file Sexual Orientation Not on file Last Filed Vital Signs Vital Sign Reading Time Taken Comments Blood Pressure 130/80 08/27/2025 8:54 AM RECREATION ATTENDANT Pulse 95 08/27/2025 8:54 AM RECREATION ATTENDANT Temperature 36.6 C (97.9 F) 08/27/2025 8:54 AM RECREATION ATTENDANT Respiratory Rate 18 08/27/2025 8:54 AM RECREATION ATTENDANT Oxygen Saturation 96% 08/27/2025 8:54 AM RECREATION ATTENDANT Inhaled Oxygen Concentration - - Weight 89.4 kg (197 lb) 08/27/2025 8:54 AM RECREATION ATTENDANT Height 185.4 cm (6' 1 ) 08/27/2025 8:54 AM RECREATION ATTENDANT Body Mass Index 25.99 08/27/2025 8:54 AM RECREATION ATTENDANT Plan of Treatment Upcoming Encounters Date Type Department Care Team (Late st Contact Info) Description 11/29/2025 9:20 AM RECREATION ATTENDANT Office Visit [facility] Medicine [place] [address] [phone] Danny Negron MD [address] [address] Health Maintenance Due Date Last Done Comments DIABETES ANNUAL FOOT EXAM 1974 DIABETES ANNUAL RETINAL EXAM 1974 PNEUMOCOCCAL VACCINE 50+ YEA RS (1 of 2 - PCV) 1975 FIT/FOBT Q 1 YEAR (AUTO ORDER) 2001 FIT/FOBT Q 1 year 2001 FLEX SIG/CT COLONOGRAPHY Q 5 YEARS (AUTO ORDER) 2001 Flex Sig/CT Colonography Q 5 years 2001 RSV VACCINE (60+ or ) (1 - Risk 50-74 years 1-dose series) 2006 ZOSTER VACCINE (1 of 2) 2006 DTAP/TDAP/TD VACCINES (2 - T d or Tdap) 09/15/2020 09/15/2010 FIT-DNA Q 3 years 12/05/2024 12/05/2021 FIT/ DNA Q 3 YEARS (AUTO ORDER) 12/05/2024 2, 12/05/2021 INFLUENZA VACCINE (#1) 2025 2, 08/08/2020, 06/26/2012 DIABETES MICROALBUMIN ANNUAL SCREEN 11/03/2025 11/03/2024, 10/25/2023, 07/19/2023 LDL CHOLESTEROL ANNUAL 11/03/2025 5, 12/15/2023, 10/25/2023, Additional history exists DIABETES HBA1C Q 6 MONTHS 11/14/20252024, 11/03/2024, 08/03/2024, Additional history exists DIABETES: A1C (Auto Order) 05/14/202605/14, 11/03/2024, 08/03/2024, Additional history exists COLORECTAL CANCER SCREENING (AUTO ORDER) 02/29/2032 02/28/2022, 07/25/2012 COLORECTAL SCREENING 02/29/2032 02/28/2022, 07/25/20 Colorectal Cancer Screening (AUTO ORDER) 02/29/2032 Colorectal Cancer Screening 02/29/2032 Abdominal Aortic Aneurysm (A AA) Screening Completed 03/26/2024, 09/21/2021, 11/05/2012, Additional history exists KHE uACR (Auto Order) Completed 11/03/2024 , 10/25/2023, 07/19/2023 KHE eGFR (Auto Order) Completed 05/14/2025 , 11/03/2024, 03/04/2024, Additional history exists Medicare Advantage ([place]) Preventative Visit/Annual Wellness Visit Completed 05/14/2025, 04/28/2024, 07/19/2023, Additional history exists Medical Devices Implanted Type Area Software Test Analyst Device Identifier Shelf Expiration Date Model / Serial / Lot Clip Ligating Horizon Med Ti [id number] - [facility] [place] - [id number] Implanted:Qty: 1 on 12/18/2023 by Derick Morse MD at [facility] Clip Left: Neck TELEFLEX- WECK CLOSURE SYS [id number] 07/09/2028 / / [id number] Clip Ligating Horizon Red [id number] - Csc - [id number] Implanted:Qty: 1 on 12/18/2023 by Derick Morse MD at [facility] Clip Left: Neck TELE[employer]LEX INC [id number] 05/27/2028 / / [id number] Patch Vascu-Guard 0.8x8cm Cardio Vg-0108 - [id number] Implanted:Qty: 1 on 12/18/2023 by Derick Morse MD at [facility] Collagen Left: Carotid [employer] [id number] 07/08/2024 [id number] / / [id number] Agent Hemostat Surgicel 2x3in 195s - [id number] Implanted:Qty: 1 on 12/18/2023 by Derick Morse MD at [facility] Hemostatic Left: Neck [employer]- [employer] [id number] 05/06/2028 1953S / / [id number] Hemostatic Surgicel 1x2in 1960 - [id number] Implanted:Qty: 1 on 12/18/2023 by Derick Morse MD at [facility] Hemostatic Left: Neck [employer] [id number] 02/03/20261 / / [id number] Procedures Procedure Name Priority Date/Time Associated Diagnosis Comments BASIC METABOLIC PANEL Routine 05/14/2025 10:24 AM CDT Type 2 diabetes mellitus with microalbuminuria, without long-term current use of insulin (CMS/HCC) HEMOGLOBIN A1C Routine 05/14/2025 10:24 AM CDT Type 2 diabetes mellitus with microalbuminuria, without long-term current use of insulin (CMS/HCC) MICROALBUMIN/CREATI NINE RATIO, RANDOM UR Routine 11/03/2024 9:14 AM RECREATION ATTENDANT Type 2 diabetes mellitus with microalbuminuria, without long-term current use of insulin (CMS/HCC) LIPID PANEL Routine 11/03/2024 9:05 AM RECREATION ATTENDANT Type 2 diabetes mellitus with microalbuminuria, without long-term current use of insulin (CMS/HCC) US ABDOMEN COMPLETE Routine 03/26/2024 9 :35 AM CDT Encounter for other specified special examinations ENDOSCOPY, COLON, SCREENING Routine 02/28/2022 COLON CANCER SCREEN, STOOL DNA Routine 12/05/2021 2:00 PM RECREATION ATTENDANT Encounter for colorectal cancer screening from Last 3 Months or Most Recently Relevant to Health Maintenance Results * (ABNORMAL) HEMOGLOBIN A1C (05/14/2025 10:24 AM CDT) HEMOGLOBIN A1C 6.3(H) <5.7 % [facility] Comment: For someone without known diabetes, a hemoglobin A1c value between 5.7% and 6.4% is consistent with prediabetes and should be confirmed with a follow-up test. For someone with known diabetes, a value <7% indicates that their diabetes is well controlled. A1c targets should be individualized based on duration of diabetes, age, comorbid conditions, and other considerations. This assay result is consistent with an increased risk of diabetes. Currently, no consensus exists regarding use of hemoglobin A1c for diagnosis of diabetes for children. ESTIMATED AVERAGE GLUCOSE (MG/DL) 134 mg/dL [facility] ESTIMATED AVERAGE GLUCOSE (MMOL/L) 7.4 mmol/L [facility] Comment: Test Performed at: [facility] [address] [facility] [place] [address] Christian Peguero MD Blood 05/14/2025 10:2 4 AM CDT 05/15/2025 2:55 AM CDT Danny Negron MD CHEMISTRY ORDERABLES [facility] Result [facility] [phone] [facility] [address] [place] [address] * (ABNORMAL) BASIC METABOLIC PANEL (05/14/2025 10:24 AM CDT) GLUCOSE 112(H) 65 - 99 mg/dL [facility] Comment: Fasting reference interval For someone without known diabetes, a glucose value between 100 and 125 mg/dL is consistent with prediabetes and should be confirmed with a follow-up test. BUN 12 7 - 25 mg/dL [facility] CREATININE 0.98 0.70 - 1.35 mg/dL [facility] GFR 84 > OR = 60 mL/min/1.7 3m2 [facility] BUN/CREAT RATIO SEE NOTE: 6 - 22 (calc) [facility] Comment: Not Reported: BUN and Creatinine are within reference range. SODIUM 138 135 - 146 mmol/L [facility] POTASSIUM 4.3 3.5 - 5.3 mmol/L [facility] CHLORIDE 101 98 - 110 mmol/L [facility] CO2 31 20 - 32 mmol/L [facility] CALCIUM 9.2 8.6 - 10.3 mg/dL [facility] Comment: Test Performed at: [facility] [place] [address] Christian Peguero MD Blood 05/14/2025 10:2 4 AM CDT 05/15/2025 2:55 AM CDT Danny Negron MD CHEMISTRY ORDERABLES Alla l Result Performing Organization Address [facility]/ZIP Co de Phone Number [facility] [phone] [address] [place] [address] * MICROALBUMIN/CREATININE RATIO, RANDOM UR (11/03/2024 9:14 AM RECREATION ATTENDANT) Creatinine, Urine 233 20 - 320 mg/dL [facility] MICROALBUMIN, URINE 4.8 See Note: mg/dL [facility] Comment: Reference Range: Reference Range Not established MICROALBUMIN/CREAT RATIO, UR 21 <30 mg/g creat [facility] Comment: The ADA defines abnormalities in albumin excretion as follows: Albuminuria Category Result (mg/g creatinine) Normal to Mildly increased <30 Moderately increased 30-299 Severely increased > OR = 300 The ADA recommends that at least two of three specimens collected within a 3-6 month period be abnormal before considering a patient to be within a diagnostic category. Test Performed at: [facility] [address] [place] [address] Christian Peguero MD Urine URINE SPECIMEN OBTAINED BY CLEAN CATCH PROCEDURE / Unknown 11/03/2024 9:14 AM RECREATION ATTENDANT 11/04/2024 4:14 AM RECREATION ATTENDANT Danny Negron MD URINE ORDERABLES Final Re sult [facility] [phone] [facility] [address] [place] [address] * (ABNORMAL) LIPID PANEL (11/03/2024 9:05 AM RECREATION ATTENDANT) CHOLESTEROL 117 <200 mg/dL [facility] HDL 36(L) > OR = 40 mg/dL [facility] TRIGLYCERIDE 67 <150 mg/dL [facility] LDL CALCULATED 67 mg/dL (calc) [facility] Comment: Reference range: <100 Desirable range <100 mg/dL for primary prevention; <70 mg/dL for patients with CHD or diabetic patients with > or = 2 CHD risk factors. LDL-C is now calculated using the Meena calculation, which is a validated novel method providing better accuracy than the Friedewald equation in the estimation of LDL-C. Guicho SS et al. ABBEY. 2013;310(19): 0103-6853 (http://education.wildcraft/faq/XSO620) CHOL/HDL RATIO 3.3 <5.0 (calc) [facility] NON-HDL CHOLESTEROL 81 <130 mg/dL (calc) [facility] Comment: For patients with diabetes plus 1 major ASCVD risk factor, treating to a non-HDL-C goal of <100 mg/dL (LDL-C of <70 mg/dL) is considered a therapeutic option. Test Performed at: [facility] [address] [place] [address] Christian Peguero MD Blood 11/03/2024 9:05 AM RECREATION ATTENDANT 11/04/2024 5:03 AM RECREATION ATTENDANT us Danny Negron MD CHEMISTRY ORDERABLES Alla l Result [facility] [phone] [facility] [address] [place] [address] * US ABDOMEN COMPLETE (03/26/2024 9:35 AM CDT) Anatomical Region Laterality Modality Abdomen Ultrasound 03/26/2024 9:35 AM CDT Impressions 03/26/2024 2:46 PM CDT IMPRESSION: Please see below. US ABDOMEN COMPLETE, 03/26/2024 9:35 AM . Reason For Exam: See Diagnosis. Diagnosis: Encounter for other specified special examinations. COMPARISON: None . TECHNIQUE: Multiplanar real-time ultrasonography of the abdomen using feliciano-scale imaging, supplemented by color and spectral Doppler as needed. . FINDINGS: . Liver: Normal size, contour, and echo texture without focal lesions. . Gallbladder: Normal. No stones, wall thickening or pericholecystic fluid collections. No sonographic Almeida's sign. . Biliary: No intra- or extra-hepatic ductal dilatation. Common bile duct measures 5 mm. . Spleen: Normal size, contour, and echo texture without focal lesions. Maximal dimension = 10.6 cm. . Pancreas: Obscured by bowel gas. . Kidneys: No perinephric fluid, or hydronephrosis. No focal masses are identified. Right kidney measures 11.9 cm. Left kidney measures 10.8 cm. . Peritoneum: No ascites. . Vascular: The visualized aorta and IVC are within normal limits. . ++++++++++++++++++++ IMPRESSION: Normal abdominal ultrasound. Narrative Procedure Note Kadeem Rosenbaum MD - 03/26/2024 IMPRESSION: Please see below. US ABDOMEN COMPLETE, 03/26/2024 9:35 AM . Reason For Exam: See Diagnosis. Diagnosis: Encounter for other specified special examinations. COMPARISON: None . TECHNIQUE: Multiplanar real-time ultrasonography of the abdomen using feliciano-scale imaging, supplemented by color and spectral Doppler as needed. . FINDINGS: . Liver: Normal size, contour, and echo texture without focal lesions. . Gallbladder: Normal. No stones, wall thickening or pericholecystic fluid collections. No sonographic Almeida's sign. . Biliary: No intra- or extra-hepatic ductal dilatation. Common bile duct measures 5 mm. . Spleen: Normal size, contour, and echo texture without focal lesions. Maximal dimension = 10.6 cm. . Pancreas: Obscured by bowel gas. . Kidneys: No perinephric fluid, or hydronephrosis. No focal masses are identified. Right kidney measures 11.9 cm. Left kidney measures 10.8 cm. . Peritoneum: No ascites. . Vascular: The visualized aorta and IVC are within normal limits. . ++++++++++++++++++++ IMPRESSION: Normal abdominal ultrasound. Gumaro Haywood MD ORDERABLES Final Result * ENDOSCOPY, COLON, SCREENING (02/28/2022) Abstract Provider GI PROCEDURE ORDERABLES Final Result * (ABNORMAL) COLON CANCER SCREEN, STOOL DNA (12/05/2021 2:00 PM RECREATION ATTENDANT) COLOGUARD RESULT Positive( A) Negative [facility] Comment: POSITIVE TEST RESULT. A positive Cologuard result should be followed with a colonoscopy or visual examination of the colon. The normal value (reference range) for this assay is negative. TEST DESCRIPTION: Composite algorithmic analysis of stool DNA-biomarkers with hemoglobin immunoassay. Quantitative values of individual biomarkers are not reportable and are not associated with individual biomarker result reference ranges. Cologuard is intended for colorectal cancer screening of adults of either sex, 45 years or older, who are at average-risk for colorectal cancer (CRC). Cologuard has been approved for use by the U.S. FDA. The performance of Cologuard was established in a cross sectional study of average-risk adults aged 50-84. Cologuard performance in patients ages 45 to 49 years was estimated by sub-group analysis of near-age groups. Colonoscopies performed for a positive result may find as the most clinically significant lesion: colorectal cancer [4.0%], advanced adenoma (including sessile serrated polyps greater than or equal to 1cm diameter) [20%] or non- advanced adenoma [31%]; or no colorectal neoplasia [45%]. These estimates are derived from a prospective cross-sectional screening study of 10,000 individuals at average risk for colorectal cancer who were screened with both Cologuard and colonoscopy. (Yolanda Bhardwaj al, N Engl J Med 2014;370(14):9215-9747.) Cologuard may produce a false negative or false positive result (no colorectal cancer or precancerous polyp present at colonoscopy follow up). A negative Cologuard test result does not guarantee the absence of CRC or advanced adenoma (pre-cancer). The current Cologuard screening interval is every 3 years. ([place] [employer] Society and U.S. Multi-Society Task Force). Cologuard performance data in a 10,000 patient pivotal study using colonoscopy as the reference method can be accessed at the following location: www.[employer]/results. Additional description of the Cologuard test process, warnings and precautions can be found at www.cologuard.com. Stool STOOL SPECIMEN / Unknown 12/05/2021 2:00 PM RECREATION ATTENDANT 12/06/2021 7:56 PM RECREATION ATTENDANT us [employer]lower [employer] DIRECTOR BODY FLUIDS AND STOOLS Final Res ult [facility] CLIA # [id number] [address] [facility] [facility], [address] [place] [address] from Last 3 Months or Most Recently Relevant to Health Maintenance Insurance [facility] MEDICARE HMO [facility] [place] [employer] Advance Directives For more information, please contact: [phone] * Full Code (Latest Code Status on File) Date Activated Date Inactivated Comments 12/15/2023 6:31 AM 12/19/2023 9:37 PM Care Teams Loading Machine Adjuster Relationship Specialty Start Date End Date Danny Negron MD [address] [phone] PCP - General Family Practice 09/18/21
--- OUTSIDE RECORDS SUMMARY | 2025-09-26 13:18 | XMS_ITS | Encounter Summary ---
Author Organization [facility] Address [address] [place] [address] Care Team Providers Care Supervisor Contingents Name Role Phone Estephania Maher MD Primary Care Provider [phone] Encounter Details Date Type Department Care Team (Latest Contact Info) Description 09/13/2005 Outpatient Historical [facility] Medicine- [id number] [place] [phone] Baldo Contreras MD [address] [place] [address] PATELLAR TENDINITIS (Primary Dx) Social History Tobacco Use Types Packs/Day Years Used Date Smoking Tobacco: Never Assessed Sex and Gender Information Value Date Recorded Sex Assigned at Not on file Legal Sex 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
--- OUTSIDE RECORDS SUMMARY | 2025-09-26 13:18 | XMS_ITS | Encounter Summary ---
Author Organization [facility] Address [address] [place] [address] Care Team Providers Care Grape Picker Name Role Phone Estephania Maher MD Primary Care Provider Encounter Details Date Type Department Care Team (Latest Contact Info) Description 01/02/2002 Outpatient Historical [facility] Family Medicine- [address] [place] [address] Dawson Grajeda MD [address] [facility] [address] [place] [phone] INFEC OTITIS EXTERNA NOS (Primary Dx); ABNORMAL WEIGHT GAIN; IMPACTED CERUMEN Social History Tobacco Use Types Packs/Day Years Used Date Smoking Tobacco: Never Assessed Sex and Gender Information Value Date Recorded Sex Assigned at Not on file 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
--- OUTSIDE RECORDS SUMMARY | 2025-09-26 13:18 | XMS_ITS | Encounter Summary ---
Author Organization [facility] Address [address] [place] [address] Care Team Providers Care Biofuels Engineering Manager Name Role Phone Estephania Maher MD Primary Care Provider Encounter Details Date Type Department Care Team (Latest Contact Info) Description 12/31/2000 Outpatient Historical [facility] Medicine [place] [address] [phone] Dawson Grajeda MD [address] [facility] [address] [place] [phone] Migraine, unspecified, without mention of intractable migraine without mention of status migrainosus (Primary Dx) Social History Tobacco Use Types Packs/Day Years Used Date Smoking Tobacco: Never Assessed Sex and Gender Information Value Date Recorded Sex Assigned at Not on file 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
--- OUTSIDE RECORDS SUMMARY | 2025-09-26 13:18 | XMS_ITS | Encounter Summary ---
Author Organization [facility] Address [address] [place] [address] Care Team Providers Care Hardwood Sawyer Name Role Phone Estephania Maher MD Primary Care Provider [phone]- [phone] Encounter Details Date Type Department Care Team (Latest Contact Info) Description 01/28/2004 Outpatient Historical 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
--- OUTSIDE RECORDS SUMMARY | 2025-09-26 13:18 | XMS_ITS | Encounter Summary ---
Author Organization [facility] Address [address] [place] [address] Care Team Providers Care Trimming Operator Name Role Phone Estephania Maher MD Primary Care Provider [phone]- [phone] Encounter Details Date Type Department Care Team (Latest Contact Info) Description 09/26/2005 Outpatient Historical [facility] [address] [phone] Baldo Contreras MD [address] [place] [address] ENTHESOPATHY, SITE NOS (Primary Dx) Social History Tobacco Use Types Packs/Day Years Used Date Smoking Tobacco: Never Assessed Sex and Gender Information Value Date Recorded Sex Assigned at Not on file 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
--- NOTE | 2025-09-26 13:33 | XRR_ITS ---
PROCEDURE INFORMATION: Exam: XR Pelvis Exam date and time: 09/26/2025 2:29 PM Age: 69 years old Clinical indication: Injury or trauma; Fall; Blunt trauma (contusions or hematomas); Bilateral; Pelvic region TECHNIQUE: Imaging protocol: Radiologic exam of the pelvis. Views: 1 or 2 view. COMPARISON: CR XR lumbar spine 2-3V* [id number] 11/24/2024 9:55 AM FINDINGS: Bones/joints: No identified fracture or dislocation. Proximal bilateral femurs intact. Bilateral hip joint spaces maintained with minimal degenerative osteoarthritis. Sacral arcuate lines intact. Mild degenerative change of the SI joints and pubic symphysis without diastasis. Stable posterior lower lumbar fusion. Soft tissues: See Bones/joints finding. XR/XR pelvis 1-2V* [id number] IMPRESSION: No identified fracture or dislocation.
--- NOTE | 2025-09-26 13:33 | XRR_ITS ---
PROCEDURE INFORMATION: Exam: XR Chest Exam date and time: 09/26/2025 2:29 PM Age: 69 years old Clinical indication: Dyspnea; Additional info: Possible sepsis TECHNIQUE: Imaging protocol: Radiologic exam of the chest. Views: 1 view. COMPARISON: CT thoracic spin wo con* [id number] 07/15/2025 1:48 PM FINDINGS: Lungs: Patchy opacity within the left lower lung increased from the folding machine tender image 07/15/2025. Pleural spaces: Unremarkable. No pleural effusion. No pneumothorax. Heart/Mediastinum: Unremarkable. No cardiomegaly. Bones/joints: Unremarkable. XR/XR chest 1V portable [id number] IMPRESSION: Left lower lung pneumonia.
--- NOTE | 2025-09-26 13:43 | W.ED.WEAKNES ---
HPI - Weakness General: Chief complaint: Weakness Stated complaint: falls Time Seen by Provider: 09/26/25 13:33 Source: patient Mode of arrival: ambulatory Limitations: no limitations History of Present Illness: 69-year-old male states that he has been having some generalized weakness over the last 2 to 3 days states he had had 2-3 falls due to feeling weak. States he is also had some fevers along with cough congestion and dysuria. Is febrile here 102. States he does have some hip pain along with right shoulder pain from a fall denies hitting his head or neck and denies headache Associated symptoms: Reports fever(s) Related Data Home Medications ?Medication ?Instructions ?Recorded ?Confirmed budesonide-formoterol HFA 160 2 inh inhalation BID 09/03/22 07/15/25 mcg-4.5 mcg/actuation aerosol inhaler (Symbicort) hydrocodone 5 mg-acetaminophen 325 1 tab PO TID PRN pain 10/20/24 07/15/25 mg tablet acetaminophen 500 mg capsule 500 mg PO QID PRN Pain 11/12/24 07/15/25 aspirin 81 mg chewable tablet 81 mg PO DAILY 11/12/24 07/15/25 aenlsevijz-axmbohrrkffys-oipupszp 1 cap PO Q6H PRN Headache 11/12/24 07/15/25 50 mg-300 mg-40 mg capsule (Fioricet) cetirizine 10 mg tablet (Zyrtec) 10 mg PO DAILY PRN allergies 11/12/24 07/15/25 rosuvastatin 10 mg tablet (Crestor) 10 mg PO DAILY 11/12/24 07/15/25 albuterol sulfate 90 mcg/actuation 2 puff inhalation Q4H PRN 07/15/25 07/15/25 aerosol inhaler Shortness Of Breath sildenafil 50 mg tablet 50 mg PO DAILY PRN .ed 07/15/25 07/15/25 Previous Rx's ?Medication ?Instructions ?Recorded celecoxib 200 mg capsule 200 mg PO DAILY #30 caps 07/15/25 methocarbamol 750 mg tablet 750 mg PO Q8H PRN muscle spasm #30 07/15/25 tabs methylprednisolone 4 mg tablets in See Rx Instructions PO .COMPLEX 07/15/25 a dose pack (Medrol (Jay Jay)) #21 ea Allergies Allergy/AdvReac Type Severity Reaction Status Date / Time No Known Allergies Allergy Verified 11/24/24 10:07 Review of Systems Const: Reports: fever(s) PFSH ED PFSH: Surgical History Status post colonoscopy (02/28/22) Family History Mother , Car accident No problems noted. Father , age 78 Heart attack Social History Smoking and tobacco/nicotine status: unknown if used tobacco/nicotine Alcohol intake: never Substance/Drug Use: never Physical Exam Const: COMMON NORMALS: patient oriented x3 HENMT: COMMON NORMALS: normocephalic and atraumatic HEAD & SCALP: normocephalic and atraumatic Eye: COMMON NORMALS: Equal, round and reactive pupils present and EOMs intact bilaterally PUPIL: Yes Equal, round and reactive pupils present Neck/C-Spine: COMMON NORMALS: full ROM and supple Chest: COMMONS NORMALS: normal inspection of the chest and normal palpation of entire chest wall Resp: COMMON NORMALS: normal respiratory effort, No retractions, No use of accessory muscles and clear to auscultation bilaterally AUSCULTATION: clear to auscultation bilaterally Cardio: COMMON NORMALS: regular rate, regular rhythm and No murmurs present (Cardio) RATE: regular rate RHYTHM: regular rhythm GI: COMMON NORMALS: Normal to inspection, nondistended, normoactive bowel sounds present, Soft to palpation, non-tender and no masses PALPATION: Yes Soft to palpation Extremity: COMMON NORMALS: normal to inspection and full ROM Neuro: COMMON NORMALS: patient oriented x3, moves all extremities and no focal motor deficits Psych: COMMON NORMALS: mental status grossly normal, Normal thought process present and cooperative THOUGHT PROCESS: Normal thought process present Skin: COMMON NORMALS: no rashes or lesions noted and no wounds GENERAL SKIN EXAM: no rashes or lesions noted Course Vital Signs: Vital signs: Vital Signs Temperature 100.5 F H 09/26/25 14:53 Pulse Rate 88 09/26/25 14:26 Respiratory Rate 25 H 09/26/25 14:26 Blood Pressure 121/63 09/26/25 14:26 Pulse Oximetry 90 09/26/25 14:26 Oxygen Delivery Me thod Room Air 09/26/25 13:56 MDM - Weakness Medical Decision Making 69-year-old male presents here with generalized weakness along with fever cough dysuria. Differential includes cystitis, pneumonia, sepsis. Patient did have a temperature 102.5 and does have an elevated white count of 25 his lactate here is normal did treat him with sepsis fluid bolus along with Tylenol and cefepime. I did get blood cultures his temperatures improved. Has not had any hypotension here. He had no hematuria has no flank pain no signs of kidney stone. Did speak to hospitalist Dr. Varma and will admit to [facility]. EKG interpreted by me at 1349 normal sinus rhythm heart rate [address] elevation QRS 94 QTc 398 Medical Records I reviewed the patient's medical records. Lab Data I reviewed the patient's lab results. 09/26/25 13:38 09/26/25 13:38 Laboratory Results WBC 25.33 10^3/uL (3.29-11.43) H 09/26/25 13:38 RBC 3.89 10^6/uL (3.85-5.65) 09/26/25 13:38 Hgb 12.20 g/dL (11.27-16.99) 09/26/25 13:38 Hct 38.3 % (37-53) 09/26/25 13:38 MCV 98.5 fl (82-101) 09/26/25 13:38 MCH 31.4 pg (27-33) 09/26/25 13:38 MCHC 31.9 g/dL (30-55) 09/26/25 13:38 RDW 13.6 % (12.1-15.1) 09/26/25 13:38 Plt Count 211 10^3/cmm (157-399) 09/26/25 13:38 MPV 9.0 fL (7.4-10.4) 09/26/25 13:38 Neut % (Auto) 88.8 % 09/26/25 13:38 Lymph % (Auto) 2.6 % 09/26/25 13:38 [place] % (Auto) 6.0 % 09/26/25 13:38 Eos % (Auto) 0.0 % 09/26/25 13:38 Baso % (Auto) 0.4 % 09/26/25 13:38 Neut # (Auto) 22.49 10^3/uL (1.8-7.7) H 09/26/25 13:38 Lymph # (Auto) 0.7 10^3/uL (0.8-4.8) L 09/26/25 13:38 [place] # (Auto) 1.5 10^3/uL (0.2-0.9) H 09/26/25 13:38 Eos # (Auto) 0.0 10^3/uL (0.0-0.8) 09/26/25 13:38 Baso # (Auto) 0.1 10^3/uL (0.0-0.1) 09/26/25 13:38 Nucleated RBC % (auto) 0 % 09/26/25 13:38 Nucleated RBCs # 0.0 /100WBC 09/26/25 13:38 Sodium 134 mmol/L (136-145) L 09/26/25 13:38 Potassium 4.5 mmol/L (3.5-5.1) 09/26/25 13:38 Chloride 98 mmol/L (98-107) 09/26/25 13:38 Carbon Dioxide 28 mmol/L (22-29) 09/26/25 13:38 Anion Gap 12.5 (5-19) 09/26/25 13:38 BUN 14 mg/dL (8-23) 09/26/25 13:38 Creatinine 1.1 mg/dL (0.7-1.2) 09/26/25 13:38 GFR Calculation 66.6 mL/min (90-130) L 09/26/25 13:38 Glucose 145 mg/dL (65-115) H 09/26/25 13:38 Calculated Osmolality 281 mOsm/kg (285-295) L 09/26/25 13:38 Lactic Acid 2.2 mmol/L (0.5-2.2) 09/26/25 13:38 Calcium 9.2 mg/dL (8.5-10.5) 09/26/25 13:38 Total Bilirubin 0.6 mg/dL (0.15-1.2) 09/26/25 13:38 AST 18 U/L (0-40) 09/26/25 13:38 ALT 10 U/L (0-41) 09/26/25 13:38 Alkaline Phosphatase 53 U/L (40-130) 09/26/25 13:38 Total Protein 7.1 g/dL (6.6-8.7) 09/26/25 13:38 Albumin 3.9 g/dL (3.5-5.2) 09/26/25 13:38 Globulin 3.2 g/dL (1.3-4.6) 09/26/25 13:38 Urine Color [place] (Yellow) A 09/26/25 14:17 Urine Appearance Cloudy (CLEAR) A 09/26/25 14:17 Urine pH 6.0 (5-7) 09/26/25 14:17 Ur Specific [place] 1.030 (1.005-1.030) 09/26/25 14:17 Urine Protein 2+ (Negative) A 09/26/25 14:17 Urine Glucose (UA) Negative (Normal) 09/26/25 14:17 Urine Ketones 1+ (Negative) H 09/26/25 14:17 Urine Blood Negative (Negative) 09/26/25 14:17 Urine Nitrate Negative (Negative) 09/26/25 14:17 Urine Bilirubin 1+ (Negative) H 09/26/25 14:17 Urine Urobilinogen 1.0 mg/dL (Negative) 09/26/25 14:17 Ur Leukocyte Esterase 2+ (Negative) A 09/26/25 14:17 Urine RBC 6-10 /hpf (0-2) 09/26/25 14:17 Urine WBC >100 /hpf (0-5) H 09/26/25 14:17 Ur Squamous Epith Cells 0-5 /hpf (0-5) 09/26/25 14:17 Amorphous Sediment Not Reportable 09/26/25 14:17 Urine Bacteria 1+ /hpf (NONE) H 09/26/25 14:17 Hyaline Casts 1.21 /lpf 09/26/25 14:17 Influenza A (PCR) Negative (Negative) 09/26/25 13:39 Influenza Type B (PCR) Negative (Negative) 09/26/25 13:39 RSV (PCR) Negative (Negative) 09/26/25 13:39 SARS-CoV-2 (PCR) Negative (Negative) 09/26/25 13:39 All radiology interpretation(s) finalized by discharge Discharge Plan Discharge Patient Disposition: Admitted As Inpatient Clinical Impression: Acute cystitis, Sepsis Condition: Stable Coding Level of Care Code 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
[2025-09-26 13:44] LABS: Hematocrit 38.3 % (37-53); Hemoglobin 12.20 g/dL (11.27-16.99); Mean Corpuscular HGB Conc 31.9 g/dL (30-55); Mean Corpuscular Hemoglobin 31.4 pg (27-33); Mean Corpuscular Volume 98.5 fl (82-101); Nucleated Red Blood Cells % 0 %; Platelet Count 211 10^3/cmm (157-399); Red Blood Count 3.89 10^6/uL (3.85-5.65); White Blood Count 25.33 10^3/uL (3.29-11.43)
--- NOTE | 2025-09-26 13:45 | ECG_ITS ---
[facility] 2025[facility]26 Pat Name: Saloni Pascual Department: Room: Gender: Male Post Splitter: : 1955 Requested By: Melany Mariscal Order Number: [id number] Reading MD: ROSA DOMINGO Measurements Intervals [place] Rate: 89 P: 68 MN: 133 QRS: 55 QRSD: 94 T: 74 QT: 351 QTc: 429 Interpretive Statements SINUS RHYTHM WITH OCCASIONAL VENTRICULAR PREMATURE COMPLEXES Compared to ECG 11/12/2024 12:32:39 Ventricular premature complex(es) now present Electronically Signed On 09-29-2025 20:48:01 CREDIT HISTORIAN by ROSA DOMINGO [email or web address]
--- NOTE | 2025-09-26 13:45 | XRR_ITS ---
PROCEDURE INFORMATION: Exam: XR Right Shoulder Exam date and time: 09/26/2025 2:29 PM Age: 69 years old Clinical indication: Injury or trauma; Fall; Blunt trauma (contusions or hematomas); Shoulder; Right TECHNIQUE: Imaging protocol: Radiologic exam of the right shoulder. Views: 2 or more views. COMPARISON: CT cervical spin wo con* [id number] 07/15/2025 1:44 PM FINDINGS: Bones/joints: Mild degenerative osteoarthritis of the acromioclavicular and glenohumeral joint spaces, otherwise maintained. No identified fracture. Soft tissues: Normal. XR/XR shoulder RT min 2V* [id number] IMPRESSION: No visualized fracture or dislocation.
[2025-09-26] MEDS: cefepime 1,000 mg SDV 2000 MG IVP (13:54)
[2025-09-26 14:06] LABS: Alanine Aminotransferase 10 U/L (0-41); Albumin Level 3.9 g/dL (3.5-5.2); Alkaline Phosphatase 53 U/L (40-130); Anion Gap 12.5 (5-19); Aspartate Amino Transferase 18 U/L (0-40); Blood Urea Nitrogen 14 mg/dL (8-23); Calcium 9.2 mg/dL (8.5-10.5); Carbon Dioxide 28 mmol/L (22-29); Chloride 98 mmol/L (98-107); Globulin 3.2 g/dL (1.3-4.6); Glucose 145 mg/dL (65-115); Osmolality Calculated 281 mOsm/kg (285-295); Potassium 4.5 mmol/L (3.5-5.1); Sodium 134 mmol/L (136-145); Total Protein 7.1 g/dL (6.6-8.7)
[2025-09-26 14:07] LABS: Lactic Sepsis W/Reflex 2.2 mmol/L (0.5-2.2)
[2025-09-26 14:18] LABS: Reflex Lactate Order REFLEX LACTIC ORDERD
[2025-09-26 14:24] LABS: Glucose Urine UA Negative (Normal); Nitrate Urine Negative (Negative); Specific Gravity, Urine 1.030 (1.005-1.030)
[2025-09-26 14:29] LABS: Add Urine Microscopic? YES
[2025-09-26 14:29] LABS: Respiratory Syncytial Virus Ce NEGATIVE (Negative); SARS-CoV-2 PCR NEGATIVE (Negative)
[2025-09-26 17:34] LABS: Lactic Acid level (Lactate) 1.5 mmol/L (0.5-2.2)
--- NOTE | 2025-09-26 18:07 | PM.HP ---
Providers/Chief Complaint Admitting Physician: Kadeem Dumont MD Primary Care Provider: Danny Negron Chief Complaint: falls History of Present Illness Saloni Pascual is a 69 year old male with prior medical history of CAD, lumbar spinal fusion, CVA, tobacco use, and sepsis presenting with complaints of falls, congestion, and dysuria. Patient reports that 2 days ago he got up from a position of lying down to go to the bathroom, felt dizzy, and almost fell. This subsequently, he had more episodes of this where he actually did fall, landing on his right shoulder at least twice. Endorses decreased appetite, fatigue, weakness, nausea, dysuria, and dehydration. Patient reports that his dysuria has been for the last two days, brown urine with a burining sensation. 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 He came to [facility] for further evaluation and treatment. Family at bedside. 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 Review of Systems General: Reports: 10 or more systems reviewed and unremarkable except in HPI and below Const: Reports: fever(s), change in appetite, fatigue and malaise Eyes: Denies: change in vision Card: Reports: lightheadedness; Denies: chest pain, dyspnea on exertion or orthopnea Resp: Reports: dyspnea and productive cough GI: Denies: abdominal pain, nausea or vomiting Musc: Reports: extremity pain and joint stiffness Skin/Breast: Denies: changes in skin color or dry skin Neuro: Reports: frequent falls and dizziness Psych: Denies: anxiety or depression Jero/Lymph: Denies: easy bruising or easy bleeding Medications/Allergies Home Medications ?Medication ?Instructions ?Recorded ?Confirmed ?Last Taken ?Type budesonide-formoterol HFA 160 2 inh inhalation BID 09/03/22 09/26/25 07/15/25 History mcg-4.5 mcg/actuation aerosol inhaler (Symbicort) hydrocodone 5 mg-acetaminophen 325 1 tab PO TID PRN pain 10/20/24 09/26/25 07/14/25 History mg tablet acetaminophen 500 mg capsule 500 mg PO QID PRN Pain 11/12/24 07/15/25 Unknown History aspirin 81 mg chewable tablet 81 mg PO DAILY 11/12/24 07/15/25 07/15/25 History lmijztmmjg-ipxsheimgjszn-rvkimazr 1 cap PO Q6H PRN Headache 11/12/24 07/15/25 Unknown History 50 mg-300 mg-40 mg capsule (Fioricet) cetirizine 10 mg tablet (Zyrtec) 10 mg PO DAILY PRN allergies 11/12/24 09/26/25 Unknown History rosuvastatin 10 mg tablet (Crestor) 10 mg PO DAILY 11/12/24 09/26/25 07/14/25 History albuterol sulfate 90 mcg/actuation 2 puff inhalation Q4H PRN 07/15/25 09/26/25 Unknown History aerosol inhaler Shortness Of Breath celecoxib 200 mg capsule 200 mg PO DAILY #30 caps 07/15/25 Unknown Rx methocarbamol 750 mg tablet 750 mg PO Q8H PRN muscle spasm #30 07/15/25 Unknown Rx tabs methylprednisolone 4 mg tablets in See Rx Instructions PO .COMPLEX 07/15/25 Unknown Rx a dose pack (Medrol (Jay Jay)) #21 ea sildenafil 50 mg tablet 50 mg PO DAILY PRN .ed 07/15/25 09/26/25 Unknown History Allergies Allergy/AdvReac Type Severity Reaction Status Date / Time No Known Allergies Allergy Verified 11/24/24 10:07 PFSH Acute PFSH: Surgical History Status post colonoscopy (02/28/22) Family History Mother , Car accident No problems noted. Father , age 78 Heart attack Social History Smoking and tobacco/nicotine status: unknown if used tobacco/nicotine Alcohol intake: never Substance/Drug Use: never Vitals/I&O/Wt Last Vital Signs Temp 99.1 F 09/26/25 17:38 Pulse 86 09/26/25 17:38 Resp 17 09/26/25 17:38 BP 116/67 09/26/25 17:38 Pulse Ox 90 09/26/25 17:38 O2 Del Method Room Air 09/26/25 17:38 09/26/25 09/26/25 09/26/25 06:59 14:59 22:59 Intake Total 2365.29 / 2365.29 Output Total 200 / 200 Balance 2165.29 / 2165.29 Weight last 48 hrs Weight 90.809 kg Weight 74.843 kg Physical Exam Narrative: CONSTITUTIONAL: The patient is a normal appearing, in no apparent distress. GENERAL: Patient in no acute distress. CARDIAC: Regular rate and rhythm. CHEST: Normal inspiratory effort, normal respiratory rate. ABDOMEN: Soft and nontender. SKIN: Clear, warm and intact. NEURO?PSYCH: The patient is alert and oriented to person, place and time. Data 09/26/25 13:38 09/26/25 13:38 Micro: Microbiology 09/26/25 13:37 Blood Culture - Preliminary Blood SPECIMEN COLLECTED 09/26/25 13:38 Blood Culture - Preliminary Blood SPECIMEN COLLECTED A&P Assessment and plan 1. Sepsis: Lactic 2.2 Blood cultures Monitor Lactic Cefepime Cardiac monitoring 2. Urinary tract infection: Urinalysis; orange, cloudy, 2+ protein, 1+ ketones, 1+ bilirubin, 2+ leukocytes, >100 WBC I&O Cefepime Fluids 3. Febrile illness: with cough, congestion, low appetite, Temp 102 CXR; left lower lung pneumonia Sepsis treatment as above Respiratory Panel Covid/Flu/RSV NEG Isolation precautions qshift Vitamins C, D, zinc Tylenol RT 4. Falls: Possibly s/t illness/UTI Orthostatics R shoulder xray sp injury x2; No visualized fracture or dislocation Pelvis xray; No identified fracture or dislocation Fall risk precautions PDMP PDMP Reviewed: Not Reviewed Attestations Medical Necessity Statement*: Patient expected to stay greater than 2 midnights for UTI and sepsis treatment with IV antibiotics. Diagnoses Sepsis A41.9 Urinary tract infection N39.0 Febrile illness R50.9 Falls R29.6
[2025-09-26 20:15] LABS: Coronavirus 229E,HKU1,NL63,OC4 Not Detected (NOT DETECT); Parainfluenza Virus Type 1 Not Detected (NOT DETECT); Parainfluenza Virus Type 2 Not Detected (NOT DETECT); Parainfluenza Virus Type 3 Not Detected (NOT DETECT); Parainfluenza Virus Type 4 Not Detected (NOT DETECT); SARS-COV-2 Not Detected (NOT DETECT)
[2025-09-27] VITALS (10 sets, daily range): BP systolic 107–136; BP diastolic 65–88; PULSE 72–96; RESP 16–117; TEMP 37.2–37.7; O2SAT 87–95
[2025-09-27 05:23] LABS: Hematocrit 36.2 % (37-53); Hemoglobin 11.40 g/dL (11.27-16.99); Mean Corpuscular HGB Conc 31.5 g/dL (30-55); Mean Corpuscular Hemoglobin 31.6 pg (27-33); Mean Corpuscular Volume 100.3 fl (82-101); Nucleated Red Blood Cells % 0 %; Platelet Count 185 10^3/cmm (157-399); Red Blood Count 3.61 10^6/uL (3.85-5.65); White Blood Count 21.78 10^3/uL (3.29-11.43)
[2025-09-27 05:52] LABS: Alanine Aminotransferase 9 U/L (0-41); Albumin Level 3.4 g/dL (3.5-5.2); Alkaline Phosphatase 48 U/L (40-130); Anion Gap 12.2 (5-19); Aspartate Amino Transferase 23 U/L (0-40); Blood Urea Nitrogen 12 mg/dL (8-23); Calcium 8.5 mg/dL (8.5-10.5); Carbon Dioxide 25 mmol/L (22-29); Chloride 104 mmol/L (98-107); Globulin 2.9 g/dL (1.3-4.6); Glucose 106 mg/dL (65-115); Osmolality Calculated 284 mOsm/kg (285-295); Potassium 4.2 mmol/L (3.5-5.1); Sodium 137 mmol/L (136-145); Total Protein 6.3 g/dL (6.6-8.7)
[2025-09-27] MEDS: cefepime 1,000 mg SDV 1000 MG IVP ×2 (08:37→20:10)
[2025-09-27 08:55] LABS: Prostate Specific Antigen 7.250 ng/mL (0-4)
--- NOTE | 2025-09-27 10:02 | PC.CHAP ---
Pastoral Care Encounter/Spiritual Assessment Type of Contact [] Declined netting inspector visit [] Patient/Family/Request visit [] Outpatient visit [] Follow-up visit [] Physician referral [] Code/Alert [x] Routine visit [] Staff referral [] Actively dying [] Patient sleeping [x] Family support [] [] Out of room [] Palliative care [] [] Receiving care in room [] Pre-surgical visit [] Trauma [] Long length of stay [] ICU visit [] Other: Relational/Emotional Strength [x] Patient feels connected with others/family/visitors/staff [] Distress [] Loneliness/isolation [] Abandonment Spirituality of Patient [x] Person of Aye [] Attends Spiritism of their Aye [x] Believes in Prayer [] Reads Bible or Sikh materials [] There are Spiritual issues to be addressed Director Of Partnerships Interventions [x] Prayer [x] Active listening [x] Non-anxious presence [x] Spiritual/emotional support [] Crisis/trauma care [] Spiritual counseling [] Bereavement support [] Provided bereavement packet [] Provided Bible/devotional materials [] Provided toy/stuffed animal, coloring book to patient or family member [] Provided Communion [] Anointing/Continental [] Salvation [x] Completed spiritual assessment [] Other: Impact on Illness or Injury [] Angry [] Fearful [] Anxious [] Often cries [] Exhaustion [] Unable to work [] Unable to attend yazidism [] Unable to walk/stand [] Unable to read [] Unable to drive [] Unable to eat/drink [] Unable to sleep [] Unable to be with family [] Patient intubated [] Other: Summary Time spent with patient 5 min
--- NOTE | 2025-09-27 11:00 | PM.PN ---
Subjective Subjective: Saloni Pascual is a 69 year old male with prior medical history of CAD, lumbar spinal fusion, CVA, tobacco use, and sepsis presenting with complaints of falls, congestion, and dysuria. Patient reports that 2 days ago he got up from a position of lying down to go to the bathroom, felt dizzy, and almost fell. This subsequently, he had more episodes of this where he actually did fall, landing on his right shoulder at least twice. Endorses decreased appetite, fatigue, weakness, nausea, dysuria, and dehydration. Patient reports that his dysuria has been for the last two days, brown urine with a burining sensation. 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 He came to [facility] for further evaluation and treatment. Family at bedside. 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 09/27/25 patient resting, sitting on the side of the bed comfortably at time of interview. Daughter at bedside. Patient reports that he believes Flomax has helped him with his urination after the first dose. I advised that it does take some time to be fully effective and advised that he needs to follow-up with urology outpatient secondary to his TSH being 7.2 today. He has no other complaints and is encouraged by his increase in water intake. Plan is to discharge to home tomorrow with p.o. antibiotics and outpatient urology referral. Vitals/I&O/Wt Last Vital Signs Temp 99.8 F H 09/27/25 16:00 Pulse 96 09/27/25 16:00 Resp 16 09/27/25 16:00 BP 136/84 09/27/25 16:00 Pulse Ox 94 09/27/25 16:00 O2 Del Method Nasal Cannula 09/27/25 16:00 O2 Flow Rate 2 09/27/25 08:00 09/27/25 09/27/25 09/27/25 06:59 14:59 22:59 Intake Total 1000 / 3365.29 720 / 720 240 / 960 Output Total 200 / 200 Balance 1000 / 3165.29 520 / 520 240 / 760 Weight last 48 hrs Weight 90.974 kg Weight 90.809 kg Weight 74.843 kg Physical Exam Narrative: CONSTITUTIONAL: The patient is a normal appearing, in no apparent distress. GENERAL: Patient in no acute distress. CARDIAC: Regular rate and rhythm. CHEST: Normal inspiratory effort, normal respiratory rate. ABDOMEN: Soft and nontender. SKIN: Clear, warm and intact. NEURO?PSYCH: The patient is alert and oriented to person, place and time. Data 09/27/25 04:54 09/27/25 04:54 Micro: Microbiology 09/26/25 13:37 Blood Culture - Preliminary Blood NEGATIVE TO DATE 09/26/25 13:38 Blood Culture - Preliminary Blood NEGATIVE TO DATE 09/26/25 14:17 Urine Culture - Preliminary Urine,Clean Catch Gram Negative Rods A&P PDMP PDMP Reviewed: Not Reviewed Attestations Medical Necessity Statement*: Patient not expected to stay more than 2 midnights. Patient expected to discharge tomorrow.
[2025-09-27] MEDS: HYDROcodone-acetaminophen 5-325 mg Tablet 1 TAB PO ×2 (11:38→18:39)
[2025-09-27] MEDS: pantoprazole 40 mg SDV IVP (17:08)
--- NOTE | 2025-09-27 18:24 | PC.RESP ---
therapist busy in er, treatment not given
[2025-09-28] VITALS (7 sets, daily range): BP systolic 112–130; BP diastolic 62–80; PULSE 77–142; RESP 16–18; TEMP 36.4–37; O2SAT 85–94; BMI 26.1
[2025-09-28] MEDS: HYDROcodone-acetaminophen 5-325 mg Tablet 1 TAB PO ×2 (00:57→06:00)
[2025-09-28] MEDS: fluticasone nasal spray 16gm Btl 2 SPRAY INTRANASAL (04:37)
[2025-09-28] MEDS: cefepime 1,000 mg SDV 1000 MG IVP (08:23)
--- NOTE | 2025-09-28 09:03 | P.DS_ITS ---
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 Sepsis: Details from hospital stay: Lactic 2.2 Blood cultures Monitor Lactic Cefepime Cardiac monitoring 2. Urinary tract infection: Details from hospital stay: Urinalysis; orange, cloudy, 2+ protein, 1+ ketones, 1+ bilirubin, 2+ leukocytes, >100 WBC I&O Cefepime Fluids Discharge to home with PO antibiotics 3. Febrile illness: Details from hospital stay: with cough, congestion, low appetite, Temp 102 CXR; left lower lung pneumonia Sepsis treatment as above Respiratory Panel Covid/Flu/RSV NEG Isolation precautions qshift Vitamins C, D, zinc Tylenol RT 4. Falls: Details from hospital stay: Possibly s/t illness/UTI Orthostatics R shoulder xray sp injury x2; No visualized fracture or dislocation Pelvis xray; No identified fracture or dislocation Fall risk precautions Other Information Additional DC diagnoses/information: Urinary retention Able to urinate, but with difficult stream Started flomax 0.4 mg - will discharge to home with this new medication Patient will follow up with Urology outpatient Monitor I&O Pain management - reports pain free now Reason for Visit Reason for Visit: falls Hospital Course Hospital Course Saloni Pascual is a 69 year old male with prior medical history of CAD, lumbar spinal fusion, CVA, tobacco use, and sepsis presenting with complaints of falls, congestion, and dysuria. Patient reports that 2 days ago he got up from a position of lying down to go to the bathroom, felt dizzy, and almost fell. This subsequently, he had more episodes of this where he actually did fall, landing on his right shoulder at least twice. Endorses decreased appetite, fatigue, weakness, nausea, dysuria, and dehydration. Patient reports that his dysuria has been for the last two days, brown urine with a burining sensation. 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 He came to [facility] for further evaluation and treatment. Family at bedside. 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 09/27/25 patient resting, sitting on the side of the bed comfortably at time of interview. Daughter at bedside. Patient reports that he believes Flomax has helped him with his urination after the first dose. I advised that it does take some time to be fully effective and advised that he needs to follow-up with urology outpatient secondary to his TSH being 7.2 today. He has no other complaints and is encouraged by his increase in water intake. Plan is to discharge to home tomorrow with p.o. antibiotics and outpatient urology referral. 09/28/25 patient sitting up, AAOx4 very kind disposition. Daughter at bedside. He reports his urinary issues have resolved and he is pain free. Slept well overnight. Patient discharging to home with family. Outpatient referral to Urology and new prescription for Flomax. He will also follow up with his PCP. Physical Exam Narrative: CONSTITUTIONAL: The patient is a normal appearing, in no apparent distress. GENERAL: Patient in no acute distress. CARDIAC: Regular rate and rhythm. CHEST: Normal inspiratory effort, normal respiratory rate. ABDOMEN: Soft and nontender. SKIN: Clear, warm and intact. NEURO?PSYCH: The patient is alert and oriented to person, place and time. Discharge Data Studies Completed and Pending Completed Studies During Hospitalization Category Date Time Status XR chest 1V portable [id number] Stat Exams 09/26/25 13:33 Completed XR pelvis 1-2V* [id number] Stat Exams 09/26/25 13:33 Completed XR shoulder RT min 2V* [id number] Stat Exams 09/26/25 13:45 Completed Pending at discharge Category Date Time Status Blood Culture Stat Lab 09/26/25 13:37 Results Urine Culture Stat Lab 09/26/25 14:17 Results Radiology Impressions Chest X-Ray 09/26/25 13:33 IMPRESSION: Left lower lung pneumonia. Pelvis X-Ray 09/26/25 13:33 IMPRESSION: No identified fracture or dislocation. Shoulder X-Ray 09/26/25 13:45 IMPRESSION: No visualized fracture or dislocation. Laboratory Results WBC 21.78 10^3/uL (3.29-11.43) H 09/27/25 04:54 RBC 3.61 10^6/uL (3.85-5.65) L 09/27/25 04:54 Hgb 11.40 g/dL (11.27-16.99) 09/27/25 04:54 Hct 36.2 % (37-53) L 09/27/25 04:54 MCV 100.3 fl (82-101) 09/27/25 04:54 MCH 31.6 pg (27-33) 09/27/25 04:54 MCHC 31.5 g/dL (30-55) 09/27/25 04:54 RDW 13.6 % (12.1-15.1) 09/27/25 04:54 Plt Count 185 10^3/cmm (157-399) 09/27/25 04:54 MPV 9.4 fL (7.4-10.4) 09/27/25 04:54 Neut % (Auto) 86.1 % 09/27/25 04:54 Lymph % (Auto) 4.9 % 09/27/25 04:54 [place] % (Auto) 4.7 % 09/27/25 04:54 Eos % (Auto) 0.0 % 09/27/25 04:54 Baso % (Auto) 0.4 % 09/27/25 04:54 Neut # (Auto) 18.74 10^3/uL (1.8-7.7) H 09/27/25 04:54 Lymph # (Auto) 1.1 10^3/uL (0.8-4.8) 09/27/25 04:54 [place] # (Auto) 1.0 10^3/uL (0.2-0.9) H 09/27/25 04:54 Eos # (Auto) 0.0 10^3/uL (0.0-0.8) 09/27/25 04:54 Baso # (Auto) 0.1 10^3/uL (0.0-0.1) 09/27/25 04:54 Nucleated RBC % (auto) 0 % 09/27/25 04:54 Nucleated RBCs # 0.0 /100WBC 09/27/25 04:54 Sodium 137 mmol/L (136-145) 09/27/25 04:54 Potassium 4.2 mmol/L (3.5-5.1) 09/27/25 04:54 Chloride 104 mmol/L (98-107) 09/27/25 04:54 Carbon Dioxide 25 mmol/L (22-29) 09/27/25 04:54 Anion Gap 12.2 (5-19) 09/27/25 04:54 BUN 12 mg/dL (8-23) 09/27/25 04:54 Creatinine 0.8 mg/dL (0.7-1.2) 09/27/25 04:54 GFR Calculation 96.1 mL/min (90-130) 09/27/25 04:54 Glucose 106 mg/dL (65-115) 09/27/25 04:54 Calculated Osmolality 284 mOsm/kg (285-295) L 09/27/25 04:54 Lactic Acid 2.2 mmol/L (0.5-2.2) 09/26/25 13:38 Lactic Acid (Sepsis) 1.5 mmol/L (0.5-2.2) 09/26/25 17:07 Calcium 8.5 mg/dL (8.5-10.5) 09/27/25 04:54 Total Bilirubin 0.4 mg/dL (0.15-1.2) 09/27/25 04:54 AST 23 U/L (0-40) 09/27/25 04:54 ALT 9 U/L (0-41) 09/27/25 04:54 Alkaline Phosphatase 48 U/L (40-130) 09/27/25 04:54 Total Protein 6.3 g/dL (6.6-8.7) L 09/27/25 04:54 Albumin 3.4 g/dL (3.5-5.2) L 09/27/25 04:54 Globulin 2.9 g/dL (1.3-4.6) 09/27/25 04:54 Prostate Specific Ag 7.250 ng/mL (0-4) H 09/27/25 04:54 Urine Color [place] (Yellow) A 09/26/25 14:17 Urine Appearance Cloudy (CLEAR) A 09/26/25 14:17 Urine pH 6.0 (5-7) 09/26/25 14:17 Ur Specific [place] 1.030 (1.005-1.030) 09/26/25 14:17 Urine Protein 2+ (Negative) A 09/26/25 14:17 Urine Glucose (UA) Negative (Normal) 09/26/25 14:17 Urine Ketones 1+ (Negative) H 09/26/25 14:17 Urine Blood Negative (Negative) 09/26/25 14:17 Urine Nitrate Negative (Negative) 09/26/25 14:17 Urine Bilirubin 1+ (Negative) H 09/26/25 14:17 Urine Urobilinogen 1.0 mg/dL (Negative) 09/26/25 14:17 Ur Leukocyte Esterase 2+ (Negative) A 09/26/25 14:17 Urine RBC 6-10 /hpf (0-2) 09/26/25 14:17 Urine WBC >100 /hpf (0-5) H 09/26/25 14:17 Ur Squamous Epith Cells 0-5 /hpf (0-5) 09/26/25 14:17 Amorphous Sediment Not Reportable 09/26/25 14:17 Urine Bacteria 1+ /hpf (NONE) H 09/26/25 14:17 Hyaline Casts 1.21 /lpf 09/26/25 14:17 Adenovirus (PCR) Not detected (NOT DETECT) 09/26/25 17:45 C. pneumoniae DNA (PCR) Not detected (NOT DETECT) 09/26/25 17:45 Coronavirus 229E (PCR) Not detected (NOT DETECT) 09/26/25 17:45 Human Metapneumovir PCR Not detected (NOT DETECT) 09/26/25 17:45 Influenza A (H1) PCR Not detected (NOT DETECT) 09/26/25 17:45 Influenza A (PCR) Negative (Negative) 09/26/25 13:39 Influ A (H1/09) PCR Not detected (NOT DETECT) 09/26/25 17:45 Influenza A (H3) PCR Not detected (NOT DETECT) 09/26/25 17:45 Influenza Type A (PCR) Not detected (NOT DETECT) 09/26/25 17:45 Influenza Type B (PCR) Not detected (NOT DETECT) 09/26/25 17:45 M. pneumoniae (PCR) Not detected (NOT DETECT) 09/26/25 17:45 Parainfluenza 1 (PCR) Not detected (NOT DETECT) 09/26/25 17:45 Parainfluenza 2 (PCR) Not detected (NOT DETECT) 09/26/25 17:45 Parainfluenza 3 (PCR) Not detected (NOT DETECT) 09/26/25 17:45 Parainfluenza 4 (PCR) Not detected (NOT DETECT) 09/26/25 17:45 RSV (PCR) Negative (Negative) 09/26/25 13:39 RSV Type A (PCR) Not detected (NOT DETECT) 09/26/25 17:45 RSV Type B (PCR) Not detected (NOT DETECT) 09/26/25 17:45 Entero/Rhino (PCR) Not detected (NOT DETECT) 09/26/25 17:45 SARS-CoV-2 (PCR) Not detected (NOT DETECT) 09/26/25 17:45 Vitals Last Vital Signs Temp 97.6 F 09/28/25 08:32 Pulse 77 09/28/25 08:32 Resp 16 09/28/25 08:32 BP 112/62 09/28/25 08:32 Pulse Ox 93 09/28/25 08:32 O2 Del Method Room Air 09/28/25 08:21 O2 Flow Rate 2 09/27/25 20:55 Discharge Plan Discharge Patient Disposition: Home Condition: Stable Prescriptions: New tamsulosin 0.4 mg Capsule 0.4 mg PO DAILY Qty: 30 0RF sulfamethoxazole-trimethoprim [Bactrim] 400-80 mg tablet 1 tab PO Q12H 10 Days Qty: 20 0RF Continued rosuvastatin [Crestor] 10 mg tablet 10 mg PO DAILY aspirin 81 mg tablet,chewable 81 mg PO DAILY cetirizine [Zyrtec] 10 mg tablet 10 mg PO DAILY PRN (Reason: allergies) acetaminophen 500 mg capsule 500 mg PO QID PRN (Reason: Pain) qtdaqvaqej-piiicknpphvup-ksus [Fioricet] 50-300-40 mg capsule 1 cap PO Q6H PRN (Reason: Headache) hydrocodone-acetaminophen 5-325 mg tablet 1 tab PO TID PRN (Reason: pain) Rx Instructions: patient may fill 30 days after previous refill. budesonide-formoterol [Symbicort] 160-4.5 mcg/actuation HFA aerosol inhaler 2 inh INHALATION BID methocarbamol 750 mg tablet 750 mg PO Q8H PRN (Reason: muscle spasm) Qty: 30 0RF sildenafil 50 mg tablet 50 mg PO DAILY PRN (Reason: .ed) albuterol sulfate 90 mcg/actuation HFA aerosol inhaler 2 puff INHALATION Q4H PRN (Reason: Shortness Of Breath) celecoxib 200 mg capsule 200 mg PO DAILY PRN (Reason: Pain) fluticasone propionate 50 mcg/actuation spray,suspension 2 spray INTRANASAL DAILY Discharge Order = DC NOW: Discharge Order (Routine); Ordered 09/28/25 Ordered By: Karuna Caballero Referrals: Jameel Perea MD [Physician, Urology] - 4-7 days Referral Note: Urinary retention, flomax initiation Danny Negron [Primary Care Provider, [facility]] - 4-7 days Discharge Diet: Advance as tolerated and Usual diet Discharge Activity: Resume usual activity and Increase activity as tolerated Patient Instructions: Opioid Safety, Patient Portal & Evan Instructions Activity Restrictions/Additional Instructions: Follow up with PCP and new Urology referral to schedule an appointment within the next 4-7 days. Continue flomax. Refills will be managed outpatient. If signs and symptoms return/worsen please return to your nearest Emergency Room for further evaluation and treatment. Discharge Attestations Time Spent in Discharge Care*: greater than 30 min Quality Metrics Clinical Quality Measures [ No reported AMI, CVA or VTE this stay] Coding Level of Care Code 32569 Diagnoses Sepsis A41.9 Sepsis acute organ dysfunction status: without acute organ dysfunction Sepsis type: sepsis due to unspecified organism Urinary tract infection N39.0 Febrile illness R50.9 Falls R29.6
--- OUTSIDE RECORDS SUMMARY | 2025-10-04 06:15 | XMS_ITS | Clinical Summary ---
Author Organization [facility] Address [address] [place]: Epic Prelude ADT [place] [address] Care Team Providers Care Sagger Maker Name Role Phone Danny Negron MD Primary Care Provider +1 [phone] Allergies No known active allergies Medications aspirin [...] 25 Active fluticasone propionate (FLONASE) 50 mcg/spray [place], Suspension nasal inhalerIndications: Simple chronic bronchitis (CMS/HCC) [...] Max Daily Amount: 3 Tablets 90 Tablet 09/28/20 25 Active doxycycline hyclate (VIBRAMYCIN) 100 mg tabletIndications:S imple chronic bronchitis (CMS/HCC) Take 1 Tablet (100 mg) by mouth 2 times daily for 10 days. 20 Tablet 08/27/20 25 025 HYDROcodone-acetami nophen (NORCO) 5-325 mg tabletIndications:C hronic bilateral low back pain with right-sided sciatica,Cervical radiculopathy,DDD (degenerative disc disease), cervical,Osteoarthr itis of spine with radiculopathy, lumbar region Take 1 Tablet by mouth every 8 hours as needed for Pain, Moderate. Max Daily Amount: 3 Tablets 90 Tablet 09/01/20 25 025 Discontinu ed(Reorder ) Active Problems Problem Noted Date Diagnosed Date [...] spine with radiculopathy, lumb ar region 07/23/2022 terminal computer operator prescription opiate use 07/23/2022 Aortic atherosclerosis 04/16/2022 [...] Encounters Date Type Department Care Team Description 09/28/2025 [facility] Family Medicine [address] [address] Danny Negron MD Chronic bilateral low back pain with right-sided sciatica; Cervical radiculopathy; DDD (degenerative disc disease), cervical; Osteoarthritis of spine with radiculopathy, lumbar region 09/28/2025 Orders Only [facility] [address] [place] [address] Provider, Abstract 09/07/2025 External Device Data ST[facility] ABSTRACTION Provider, Abstract 09/01/[address] [address] Danny Negron MD Chronic bilateral low back pain with right-sided sciatica; Cervical radiculopathy; DDD (degenerative disc disease), cervical; Osteoarthritis of spine with radiculopathy, lumbar region 08/27/2025 9:00 AM ASPARAGUS BUNCHER Office Visit [address] [address] Danny Negron MD Simple chronic bronchitis (CMS/HCC) (Primary Dx); Intractable migraine without aura and without status migrainosus; Atherosclerosis of both carotid arteries; History of CVA in adulthood; Type 2 diabetes mellitus with microalbuminuria, without long-term current use of insulin (CMS/HCC); Aortic atherosclerosis 08/24/2025 External Device Data STL ABSTRACTION Provider, Abstract 08/05/[address] [phone] Danny Negron MD Chronic bilateral low back pain with right-sided sciatica; Cervical radiculopathy; DDD (degenerative disc disease), cervical; Osteoarthritis of spine with radiculopathy, lumbar region 07/09/[address] [address] Danny Negron MD Chronic bilateral low back [...] on file Legal Sex Male 6:44 AM ASPARAGUS BUNCHER Gender Identity Not on file Sexual Orientation Not on file Last Filed Vital Signs Vital Sign Reading Time Taken Comments Blood Pressure 130/80 08/27/2025 8:54 AM ASPARAGUS BUNCHER Pulse 95 08/27/2025 8:54 AM ASPARAGUS BUNCHER Temperature 36.6 C (97.9 F) 08/27/2025 8:54 AM ASPARAGUS BUNCHER Respiratory Rate 18 08/27/2025 8:54 AM ASPARAGUS BUNCHER Oxygen Saturation 96% 08/27/2025 8:54 AM ASPARAGUS BUNCHER Inhaled Oxygen Concentration - - Weight 89.4 kg (197 lb) 08/27/2025 8:54 AM ASPARAGUS BUNCHER Height 185.4 cm (6' 1 ) 08/27/2025 8:54 AM ASPARAGUS BUNCHER Body Mass Index 25.99 08/27/2025 8:54 AM ASPARAGUS BUNCHER Plan of Treatment Upcoming Encounters Date Type Department Care Team (Late st Contact Info) Description 11/29/2025 9:20 AM ASPARAGUS BUNCHER Office Visit [address] [address] Danny Negron MD [address] [address] Health Maintenance Due Date Last [...] 02/28/2022, 07/25/2012 COLORECTAL SCREENING 02/29/2032 02/28/2022, 07/25/20 12 Colorectal Cancer Screening (AUTO ORDER) 02/29/2032 Colorectal Cancer Screening 02/29/2032 Abdominal Aortic Aneurysm (A AA) Screening Completed 03/26/2024, 09/21/2021, 11/05/2012, Additional history exists [facility] uACR (Auto Order) Completed 11/03/2024 , 10/25/2023, 07/19/2023 [place] Preventative Visit/Annual Wellness Visit Completed 05/14/2025, 04/28/2024, 07/19/2023, Additional history exists KHE eGFR (Auto Order) Completed 09/26/2025 , 05/14/2025, 11/03/2024, Additional history exists Medical Devices Implanted Type Area K 9 Police Officer Device Identifier Shelf Expiration Date Model / Serial / Lot Clip Ligating Horizon Med Ti [id number] - Csc - [id number] Implanted:Qty: 1 on 12/18/2023 by Derick Morse MD at [facility] Clip Left: Neck TELEFLEX- WECK CLOSURE SYS [id number] 07/09/2028 [id number] / / [id number] Clip Ligating Horizon Red [id number] - Csc - [id number] Implanted:Qty: 1 on 12/18/2023 by Derick Morse MD at [facility] Clip Left: Neck TELEFLEX INC [id number] 05/27/2028 [id number] / / [id number] Patch Vascu-Guard 0.8x8cm Cardio Vg-0108 - [id number] Implanted:Qty: 1 on 12/18/2023 by Derick Morse MD at [facility] Collagen Left: Carotid [employer]IS- B[employer] [id number] 07/08/2024 [id number] / / [id number] Agent Hemostat Surgicel 2x3in 1952s - [id number] Implanted:Qty: 1 on 12/18/2023 by Derick Morse MD at [facility] Hemostatic Left: Neck J[employer]J- ETH[employer] INC [id number] 05/06/20281952S / / [id number] Hemostatic Surgicel 1x2in 1960 - [id number] Implanted:Qty: 1 on 12/18/2023 by Derick Morse MD at [facility] Hemostatic Left: Neck J&J- [employer] [id number] 02/03/20261960 / / [id number] Procedures Procedure Name Priority Date/Time Associated Diagnosis Comments COMPREHENSIVE METABOLIC PANEL Routine 09/26/2025 10:31 AM ASPARAGUS BUNCHER HEMOGLOBIN A1C Routine 05/14/2025 10:24 AM CDT Type 2 diabetes mellitus with microalbuminuria, without long-term current use of insulin (CMS/HCC) MICROALBUMIN/CREATINI NE RATIO, RANDOM UR Routine 11/03/2024 9:14 AM ASPARAGUS BUNCHER Type 2 diabetes mellitus with microalbuminuria, without long-term current use of insulin (CMS/HCC) LIPID PANEL Routine 11/03/2024 9:05 AM ASPARAGUS BUNCHER Type 2 diabetes mellitus with microalbuminuria, without long-term current use of insulin (CMS/HCC) US ABDOMEN COMPLETE Routine 03/26/2024 9 :35 AM CDT Encounter for other specified special examinations ENDOSCOPY, COLON, SCREENING Routine 02/28/2022 COLON CANCER SCREEN, STOOL DNA Routine 12/05/2021 2:00 PM ASPARAGUS BUNCHER Encounter for colorectal cancer screening from Last 3 Months or Most Recently Relevant to Health Maintenance Results * COMPREHENSIVE METABOLIC PANEL (09/26/2025 10:31 AM ASPARAGUS BUNCHER) Blood us Abstract Provider CHEMISTRY ORDERABLES Final Res ult * (ABNORMAL) HEMOGLOBIN A1C (05/14/2025 10:24 AM [...] ESTIMATED AVERAGE GLUCOSE (MMOL/L) 7.4 mmol/L [facility] Comment: Test Performed at: [facility] [address] [place] [address] Christian Peguero MD Blood 05/14/2025 10:2 4 AM CDT 05/15/2025 2:55 AM CDT Danny Negron MD CHEMISTRY ORDERABLES Alla l Result [facility] [phone] [facility] [address] [place] [address] * MICROALBUMIN/CREATININE RATIO, RANDOM UR (11/03/2024 9:14 AM ASPARAGUS BUNCHER) Creatinine, Urine 233 20 - 320 mg/dL [...] within a diagnostic category. Test Performed at: [facility] [address] [facility] [place] [address] Christian Peguero MD Urine URINE SPECIMEN OBTAINED BY CLEAN CATCH PROCEDURE / Unknown 11/03/2024 9:14 AM ASPARAGUS BUNCHER 11/04/2024 4:14 AM ASPARAGUS BUNCHER us Danny Negron MD URINE ORDERABLES Final Re sult [facility] [phone] [facility] [address] [facility] [place] [address] * (ABNORMAL) LIPID PANEL (11/03/2024 9:05 AM ASPARAGUS BUNCHER) CHOLESTEROL 117 <200 mg/dL [facility] HDL 36(L) > OR = 40 mg/dL [facility] TRIGLYCERIDE 67 <150 mg/dL [facility] LDL CALCULATED 67 mg/dL (calc) [facility] Comment: Reference range: <100 Desirable range <100 mg/dL for primary prevention; <70 mg/dL for patients with CHD or diabetic patients with > or = 2 CHD risk factors. LDL-C is now calculated using the Guicho-Beckford calculation, which is a validated novel method providing better accuracy than the Friedewald equation in the estimation of LDL-C. Guicho LI et al. ABBEY. 2013;310(19): 0824-4645 (http://education.Airwoot/faq/SRW657) CHOL/HDL RATIO 3.3 <5.0 (calc) [facility] NON-HDL CHOLESTEROL 81 <130 mg/dL (calc) [facility] Comment: For patients with diabetes plus 1 major ASCVD risk factor, treating to a non-HDL-C goal of <100 mg/dL (LDL-C of <70 mg/dL) is considered a therapeutic option. Test Performed at: [facility] [address] [place] [address] Christian Peguero MD Blood 11/03/2024 9:05 AM ASPARAGUS BUNCHER 11/04/2024 5:03 AM ASPARAGUS BUNCHER Danny Negron MD CHEMISTRY ORDERABLES Alla l Result [facility] [phone] [facility] [address] [place] [address] * US ABDOMEN COMPLETE (03/26/2024 9:35 AM [...] IMPRESSION: Normal abdominal ultrasound. Gumaro Haywood MD US ORDERABLES Final Result * ENDOSCOPY, COLON, SCREENING (02/28/2022) Abstract Provider GI PROCEDURE ORDERABLES Final Result * (ABNORMAL) COLON CANCER SCREEN, STOOL DNA (12/05/2021 2:00 PM ASPARAGUS BUNCHER) COLOGUARD RESULT Positive( A) Negative [facility] Comment: POSITIVE TEST RESULT. A positive Cologuard [...] (Yolanda Bhardwaj al, N Engl J Med 2014;370(14):2737-3995.) Cologuard may produce a false negative or false positive result (no colorectal cancer or precancerous polyp present at colonoscopy follow up). A negative Cologuard test result does not guarantee the absence of CRC or advanced adenoma (pre-cancer). The current Cologuard screening interval is every 3 years. ([place] Cancer Society and U.S. Multi-Society Task Force). Cologuard performance data in a 10,000 patient pivotal study using colonoscopy as the reference method can be accessed at the following location: www.The Mad [employer]/results. Additional description of the Cologuard test process, warnings and precautions can be found at www.[employer].rd.Synchronica. Stool STOOL SPECIMEN / Unknown 12/05/2021 2:00 PM ASPARAGUS BUNCHER 12/06/2021 7:56 PM ASPARAGUS BUNCHER us [employer] ARCHITECT BODY FLUIDS AND STOOLS Final Res ult [facility] CLIA # [id number] [address] [place] [address] from Last 3 Months or Most Recently Relevant to Health Maintenance Insurance BCBS MEDICARE HMO * Guarantor: [facility] (C) Account Type Relation to Patient Date of Phone Billing Address Corporate Other DEFAULT ADDRESS [address] [employer] * Guarantor: [facility] ([facility]) Account Type Relation to Patient Date of Phone Billing Address Corporate Other DEFAULT ADDRESS [address] [employer] Advance Directives For more information, please contact: [phone] * Full Code (Latest Code Status on File) Date Activated Date Inactivated Comments 12/15/2023 6:31 AM 12/19/2023 9:37 PM Care Teams Sagger Maker Relationship Specialty Start Date End Date Danny Negron MD [address] [phone] PCP - General Family Practice 09/18/21
--- OUTSIDE RECORDS SUMMARY | 2025-10-04 06:15 | XMS_ITS | Encounter Summary ---
Author Organization [facility] Address [address] [place] [address] Care Team Providers Care Tobacco Sweeper Name Role Phone Estephania Maher MD Primary Care Provider [phone]- [phone] Encounter Details Date Type Department Care Team (Latest Contact Info) Description 09/26/[address] [facility] [address] [phone] Baldo Contreras MD [address] [place] [address] ENTHESOPATHY, SITE NOS (Primary Dx) Social History Tobacco Use Types Packs/Day Years Used Date Smoking Tobacco: Never Assessed Sex and Gender Information Value Date Recorded Sex Assigned at Not on file Legal Sex Male 3:00 AM BOILER HELPER Gender Identity Not on file Sexual Orientation Not on file documented as of this encounter Plan of Treatment Not on file documented as of this encounter Visit Diagnoses Diagnosis Enthesopathy of unspecified site- Primary documented in this encounter Care Teams Tobacco Sweeper Relationship Specialty Start Date End Date Estephania Maher MD [address] beds at the [facility] [address] [place] [address] PCP - General Family Practice 06/25/18 documented as of this encounter
--- OUTSIDE RECORDS SUMMARY | 2025-10-04 06:15 | XMS_ITS | Encounter Summary ---
Author Organization [facility] Address [address] [place] [address] Care Team Providers Care Professor Of Pathology Name Role Phone Danny Negron MD Primary Care Provider [phone] [phone] Reason for Visit * Reason Onset Date Comments Medication Refill 07/25/2021 Encounter Details Date Type Department Care Team (Late st Contact Info) Description 07/25/2021 Telephone [facility] Contact Center Clinics [address] [place] [address] Estephania Maher MD [address] [facility] [address] [place] [address] Medication Refill Social History Tobacco Use Types Packs/Day Years Used Date Smoking Tobacco: Every Day Cigarettes Smokeless Tobacco: Current Comments:Quit smokin can s per week Alcohol Use Standard Drinks/Week Comments Yes 5 (1 standard drink = 0.6 oz pur e alcohol) Sex and Gender Information Value Date Recorded Sex Assigned at Not on file Legal Sex Male 6:44 AM MANGANESE BREAKER Gender Identity Not on file Sexual Orientation [...] for Rx refill Erasmokathleen Vance Pascual at [phone] (home) called about Rx refill of albuterol HFA 90 mcg inhaler The patient's preferred pharmacy is [facility] [address] [place] [address] [address] documented in this encounter Plan of Treatment Upcoming Encounters Date Type Department Care Team (Late st Contact Info) Description 11/29/2025 9:20 AM MANGANESE BREAKER Office Visit [address] [phone] Danny Negron MD [address] [phone] documented as of this encounter Visit Diagnoses Not on filedocumented in this encounter Additional Health Concerns Infection Onset Date Last Indicated Resolved Time Influenza 09/25/2022 09/25/2022 10/02/2022 1:16 AM MANGANESE BREAKER Influenza 03/08/2023 03/08/2023 10/11/2023 1:17 AM MANGANESE BREAKER documented as of this encounter Care Teams Professor Of Pathology Relationship Specialty Start Date End Date Danny Negron MD [address] [phone] PCP - General Family Practice 09/18/21 documented as of this encounter
--- OUTSIDE RECORDS SUMMARY | 2025-10-04 06:15 | XMS_ITS | Encounter Summary ---
Author Organization [facility] Address [address] [place] [address] Care Team Providers Care Content Producer Name Role Phone Estephania Maher MD Primary Care Provider [phone]- [phone] Encounter Details Date Type Department Care Team (Latest Contact Info) Description 05/12/2003 Outpatient Historical [facility] Medicine [place] [address] [address] Tierra Talbot MD NO ADDRESS ON FILE JOINT PAIN-SHLDER (Primary Dx); ABDOMINAL PAIN RUQ Social History Tobacco Use Types Packs/Day Years Used Date Smoking Tobacco: Never Assessed Sex and Gender Information Value Date Recorded Sex Assigned at Not on file Legal Sex Male 3:00 AM COUNTER ROLLER Gender Identity Not on file Sexual Orientation Not on file documented as of this encounter Plan of Treatment Not on file documented as of this encounter Visit Diagnoses Diagnosis Pain in joint, shoulder region- Primary Abdominal pain, right upper quadrant documented in this encounter Care Teams Content Producer Relationship Specialty Start Date End Date Estephania Maher MD [address] [phone] PCP - General Family Practice 06/25/18 documented as of this encounter
--- OUTSIDE RECORDS SUMMARY | 2025-10-04 06:15 | XMS_ITS | Clinical Summary ---
Author Organization [facility] Address [address] 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 Care Teams Cna Hha Relationship Specialty Start Date End Date Estephania Maher MD [address] [facility] [address] [place] [address] PCP - General Family Practice 06/25/18
--- OUTSIDE RECORDS SUMMARY | 2025-10-04 06:15 | XMS_ITS | Encounter Summary ---
Author Organization [facility] Address [address] [place] [address] Care Team Providers Care Chief Diversity Officer Name Role Phone Danny Negron MD Primary Care Provider [phone] Encounter Details Date Type Department Care Team (Late st Contact Info) Description 09/28/2025 Orders Only [facility] HIM [address] [place] [address] Provider, Abstract NO ADDRESS ON FILE Social History Tobacco Use Types Packs/Day Years Used Date Smoking Tobacco: Every Day Cigarettes 0.5 1.7 Started: 01/10/2024; Last attempted to quit: 12/25/2023 Smokeless Tobacco: Current Chew Comments:Smokes between 5 -7 cigarettes per day [...] on file Legal Sex Male 6:44 AM KITCHEN WORKER Gender Identity Not on file Sexual Orientation Not on file documented as of this encounter Plan of Treatment Upcoming Encounters Date Type Department Care Team (Late st Contact Info) Description 11/29/2025 9:20 AM KITCHEN WORKER Office Visit [facility] Medicine [place] [address] [address] Danny Negron MD [address] [address] documented as of this encounter Procedures Procedure Name Priority Date/Time Associated Diagnosis Comments COMPREHENSIVE METABOLIC PANEL Routine 09/26/2025 10:31 AM KITCHEN WORKER documented in this encounter Results * COMPREHENSIVE METABOLIC PANEL (09/26/2025 10:31 AM KITCHEN WORKER) Blood us Abstract Provider CHEMISTRY ORDERABLES Final Res ult documented in this encounter Visit Diagnoses Not on filedocumented in this encounter Care Teams Chief Diversity Officer Relationship Specialty Start Date End Date Danny Negron MD [address] [address] PCP - General Family Practice 09/18/21 documented as of this encounter
--- OUTSIDE RECORDS SUMMARY | 2025-10-04 06:15 | XMS_ITS | Encounter Summary ---
Author Organization [facility] Address [address] [place] [address] Care Team Providers Care Logging Rafter Laborer Name Role Phone Estephania Maher MD Primary Care Provider [phone]- [phone] Encounter Details Date Type Department Care Team (Latest Contact Info) Description 10/05/2004 Outpatient Historical [facility] Medicine [place] [address] [address] Roberto Higgins NP NO ADDRESS ON FILE ACUTE SINUSITIS NOS (Primary Dx); ACUTE BRONCHITIS Social History Tobacco Use Types Packs/Day Years Used Date Smoking Tobacco: Never Assessed Sex and Gender Information Value Date Recorded Sex Assigned at Not on file 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
--- OUTSIDE RECORDS SUMMARY | 2025-10-04 06:15 | XMS_ITS | Encounter Summary ---
Author Organization [facility] Address [address] [place] [address] Care Team Providers Care Regulatory Leader Name Role Phone Estephania Maher MD Primary Care Provider [phone]- [phone] Encounter Details Date Type Department Care Team (Latest Contact Info) Description 12/06/1998 Outpatient Historical [facility] Medicine [place] [address] [address] Nathaniel Sky DO NO ADDRESS ON FILE Dysfunct eustachian tube (Primary Dx); Counseling on other sexually transmitted diseases; Dizziness and giddiness Social History Tobacco Use Types Packs/Day Years Used Date Smoking Tobacco: Never Assessed Sex and Gender Information Value Date Recorded Sex Assigned at Not on file Legal Sex Male 3:00 AM ORDER PICKER Gender Identity Not on file Sexual Orientation Not on file documented as of this encounter Plan of Treatment Not on file documented as of this encounter Visit Diagnoses Diagnosis Dysfunct eustachian tube- Primary Dysfunction of Eustachian tube Counseling on other sexually transmitted diseases Dizziness and giddiness documented in this encounter Care Teams Regulatory Leader Relationship Specialty Start Date End Date Estephania Maher MD [address] [facility] [address] [place] [phone] PCP - General Family Practice 06/25/18 documented as of this encounter
--- OUTSIDE RECORDS SUMMARY | 2025-10-04 06:15 | XMS_ITS | Encounter Summary ---
Author Organization [facility] Address [address] [place] [address] Care Team Providers Care Instructional Paraprofessional Name Role Phone Estephania Maher MD Primary Care Provider [phone]- [phone] Encounter Details Date Type Department Care Team (Latest Contact Info) Description 09/13/2005 Outpatient Historical [facility] Medicine- [place] [address] [place] [phone] Baldo Contreras MD [address] [place] [address] PATELLAR TENDINITIS (Primary Dx) Social History Tobacco Use Types Packs/Day Years Used Date Smoking Tobacco: Never Assessed Sex and Gender Information Value Date Recorded Sex Assigned at Not on file Legal Sex Male 3:00 AM OYSTER WORKER Gender Identity Not on file Sexual Orientation Not on file documented as of this encounter Plan of Treatment Not on file documented as of this encounter Visit Diagnoses Diagnosis Patellar tendinitis- Primary documented in this encounter Care Teams Instructional Paraprofessional Relationship Specialty Start Date End Date Estephania Maher MD [address] [facility] [address] [place] [address] PCP - General Family Practice 06/25/18 documented as of this encounter
--- OUTSIDE RECORDS SUMMARY | 2025-10-04 06:15 | XMS_ITS | Encounter Summary ---
Author Organization [facility] Address [address] [place] [address] Care Team Providers Care Crane Man Name Role Phone Estephania Maher MD Primary Care Provider Encounter Details Date Type Department Care Team (Latest Contact Info) Description 04/12/2003 Outpatient Historical [facility] Family Medicine- [place] [address] [place] [phone] Tierra Talbot MD NO ADDRESS ON FILE JOINT PAIN-SHLDER (Primary Dx); CERVICALGIA; SPASM OF MUSCLE Social History Tobacco Use Types Packs/Day Years Used Date Smoking Tobacco: Never Assessed Sex and Gender Information Value Date Recorded Sex Assigned at Not on file Legal Sex Male 3:00 AM STARS COORDINATOR Gender Identity Not on file Sexual Orientation Not on file documented as of this encounter Plan of Treatment Not on file documented as of this encounter Visit Diagnoses Diagnosis Pain in joint, shoulder region- Primary Cervicalgia Spasm of muscle documented in this encounter Care Teams Crane Man Relationship Specialty Start Date End Date Estephania Maher MD [address] [facility] [address] [place] [address] PCP - General Family Practice 06/25/18 documented as of this encounter
--- OUTSIDE RECORDS SUMMARY | 2025-10-04 06:15 | XMS_ITS | Encounter Summary ---
Author Organization [facility] Address [address] [place] [address] Care Team Providers Care Assistant Chief Of Police Name Role Phone Estephania Maher MD Primary Care Provider Encounter Details Date Type Department Care Team (Latest Contact Info) Description 01/02/2002 Outpatient Historical [facility] Family Medicine- [place] [address] [place] [address] Dawson Grajeda MD [address] [facility] [address] [place] [phone] INFEC OTITIS EXTERNA NOS (Primary Dx); ABNORMAL WEIGHT GAIN; IMPACTED CERUMEN Social History Tobacco Use Types Packs/Day Years Used Date Smoking Tobacco: Never Assessed Sex and Gender Information Value Date Recorded Sex Assigned at Not on file Legal Sex Male 3:00 AM PARK ACTIVITIES COORDINATOR Gender Identity Not on file Sexual Orientation Not on file documented as of this encounter Plan of Treatment Not on file documented as of this encounter Visit Diagnoses Diagnosis Infective otitis externa, unspecified- Primary Abnormal weight gain Impacted cerumen documented in this encounter Care Teams Assistant Chief Of Police Relationship Specialty Start Date End Date Estephania aMher MD [address] [facility] [address] [place] [phone] PCP - General Family Practice 06/25/18 documented as of this encounter
--- OUTSIDE RECORDS SUMMARY | 2025-10-04 06:15 | XMS_ITS | Encounter Summary ---
Author Organization [facility] Address [address] [place] [address] Care Team Providers Care Marine Resource Economist Name Role Phone Estephania Maher MD Primary Care Provider [phone] Encounter Details Date Type Department Care Team (Latest Contact Info) Description 02/16/2000 Outpatient Historical [facility] Medicine [place] [address] [address] Nathaniel Sky DO NO ADDRESS ON FILE Acute pharyngitis (Primary Dx); Impacted cerumen Social History Tobacco Use Types Packs/Day Years Used Date Smoking Tobacco: Never Assessed Sex and Gender Information Value Date Recorded Sex Assigned at Not on file 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
--- OUTSIDE RECORDS SUMMARY | 2025-10-04 06:15 | XMS_ITS | Encounter Summary ---
Author Organization [facility] Address [address] [place] [address] Care Team Providers Care Prior Authorization Nurse Name Role Phone Danny Negron MD Primary Care Provider [phone] Reason for Visit * Reason Comments Medication Refill Encounter Details Date Type Department Care Team (Late st Contact Info) Description 09/28/2025 Refill [facility] Medicine [place] [address] [address] Danny Negron MD [address] [address] Chronic bilateral low back pain with right-sided sciatica; Cervical radiculopathy; DDD (degenerative disc disease), cervical; Osteoarthritis of spine with radiculopathy, lumbar region Social History Tobacco Use Types Packs/Day Years [...] on file 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 Gender Identity Not on file Sexual Orientation Not on file documented as of this encounter Miscellaneous Notes * Telephone Encounter - Karine Soares RN - 09/28/2025 1:56 PM DRAMA THERAPIST Medication Refill Request Last Fill Date:09/01/25 #90 tabs Recent and Future Visits: Recent Visits Date Type Provider Dept 08/27/25 Office Visit Danny Negron MD [facility] [place] 05/14/25 Office Visit Danny Negron MD [facility] [place] 02/04/25 Office Visit Danny Negr[facility] 11/03/24 Office Visit Danny Negron MD [facility] 08/03/24 Office Visit Danny Negron MD [facility] 04/28/24 Office Visit Danny Ngeron MD [facility] Showing recent visits within past 540 days with a meds authorizing provider and meeting all other requirements Future Appointments Date Type Provider Dept 02/23/26 Appointment Danny Negron MD [facility] Showing future appointments within next 365 days with a meds authorizing provider and meeting all other requirements A THERAPIST * Telephone Encounter - Jhoana Dykes - 09/28/2025 1:51 PM CST Copied from [facility] #[id number]. Topic: Medication Request >> Sep 28, 2025 1:50 PM Jhoana Baig wrote: Caller Name: Saloni Pascual Callback Number: Telephone Information: Medication (Ask patient/caregiver to spell if possible): HYDROcodone- acetaminophen (NORCO) 5-325 mgtablet Note: All medication prescriptions can be requested using one [facility] Preferred Pharmacy: The patient's preferred pharmacy is [facility] [address] [place] [address] [address] [place] [place] [address]. Call Notes: Called for refill Did caller contact the correct clinic for prescribing provider? Yes Ask caller if the refill is for a controlled medication. Is this for a controlled Medication? Yes Is there an encounter open? No A THERAPIST documented in this encounter Plan of Treatment Upcoming Encounters Date Type Department Care Team (Late st Contact Info) Description 11/29/2025 9:20 AM DRAMA THERAPIST Office Visit [facility] [address] [phone] Danny Negron MD [address] [phone] documented as of this encounter Visit Diagnoses Diagnosis Chronic bilateral low back pain with right-sided sciatica Cervical radiculopathy Brachial neuritis or radiculitis nos DDD (degenerative disc disease), cervical Degeneration of cervical intervertebral disc Osteoarthritis of spine with radiculopathy, lumbar region documented in this encounter Care Teams Prior Authorization Nurse Relationship Specialty Start Date End Date Danny Negron MD [address] [phone] PCP - General Family Practice 09/18/21 documented as of this encounter
--- OUTSIDE RECORDS SUMMARY | 2025-10-04 06:15 | XMS_ITS | Encounter Summary ---
Author Organization [facility] Address [address] [place] [address] Care Team Providers Care Front Desk Specialist Name Role Phone Estephania Maher MD Primary Care Provider [phone] Encounter Details Date Type Department Care Team (Latest Contact Info) Description 12/20/1998 Outpatient Historical [facility] Medicine [place] [address] [address] Nathaniel Sky DO NO ADDRESS ON FILE Other reasons for seeking consultation (Primary Dx) Social History Tobacco Use Types Packs/Day Years Used Date Smoking Tobacco: Never Assessed Sex and Gender Information Value Date Recorded Sex Assigned at Not on file 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
--- OUTSIDE RECORDS SUMMARY | 2025-10-04 06:15 | XMS_ITS | Encounter Summary ---
Author Organization [facility] Address [address] [place] [address] Care Team Providers Care Uniform Patrol Police Officer Name Role Phone Estephania Maher MD Primary Care Provider [phone] Encounter Details Date Type Department Care Team (Latest Contact Info) Description 01/28/2004 Outpatient Historical [facility] Medicine [place] [address] [phone] Roberto Higgins NP NO ADDRESS ON FILE Pain in limb (Primary Dx); ARTHROPATHY NOS-OTHER SITE; ACUTE BRONCHITIS; ACUTE SINUSITIS NOS Social History Tobacco Use Types Packs/Day Years Used Date Smoking Tobacco: Never Assessed Sex and Gender Information Value Date Recorded Sex Assigned at Not on file 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
--- OUTSIDE RECORDS SUMMARY | 2025-10-04 06:15 | XMS_ITS | Encounter Summary ---
Author Organization [facility] Address [address] [place] [address] Care Team Providers Care Process Control Programmer Name Role Phone Estephania Maher MD Primary Care Provider Encounter Details Date Type Department Care Team (Latest Contact Info) Description 12/31/2000 Outpatient Historical [facility] Medicine [place] [address] [phone] Dawson Grajeda MD [address] [facility] [address] [place] [phone] Migraine, unspecified, without mention of intractable migraine without mention of status migrainosus (Primary Dx) Social History Tobacco Use Types Packs/Day Years Used Date Smoking Tobacco: Never Assessed Sex and Gender Information Value Date Recorded Sex Assigned at Not on file 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
== END 2025-09-28 13:28 | disposition home or self-care (01) ==
LOC: ER 15:12 → MEDSURG 15:45
PROVIDERS: Admitting Provider Internal Medicine; Emergency Provider Emergency Medicine; PCP Family Medicine; Visit Provider Clinical Nurse Specialist Acute Care
DX: A41.9 Sepsis, unspecified organism (principal); N39.0 Urinary tract infection, site not specified; R50.9 Fever, unspecified; R29.6 Repeated falls; Z79.891 Long term (current) use of opiate analgesic; Z79.82 Long term (current) use of aspirin; I25.10 Atherosclerotic heart disease of native coronary artery without angina pectoris; Z86.73 Personal history of transient ischemic attack (TIA), and cerebral infarction without residual deficits
CPT/HCPCS: 36415; 71045; 72170; 73030; 80053; 81001; 83605; 84153; 85025; 87040; 87077; 87086; 87186; 87486; 87581; 87633; 87637; 93005; 94640; 94760; 96374; 99285; G0378; J0692; J2470; J7030; J7613; J7626; J9999